=== PATIENT | male | born 1930 | race Caucasian/White ===

== ENCOUNTER 2018-06-03 11:37 | Inpatient (IN) | payer MEDICARE, OTHER ==
--- NOTE | 2018-06-03 12:23 | RAD ---
XR Chest 1 View Portable HISTORY:Syncope, weakness. COMPARISON: None. FINDINGS: Heart size appears slightly enlarged with atherosclerotic changes of aorta. The lungs are c lear of infiltrates. There are no signs of failure. IMPRESSION: Mild cardiomegaly.
--- NOTE | 2018-06-03 12:26 | RAD ---
XR Knee Lt 4 View STANDARD HISTORY:Left knee pain status post fall COMPARISON: None. FINDINGS: There are mild arthritic changes of the knee. There is no signs of fracture or joint effusi on. Vascular calcifications are present. IMPRESSION: No acute injury.
--- NOTE | 2018-06-03 12:32 | CT ---
CT head without contrast: Multiple axial tomograms obtained through the head without IV enhancement. INDICATIONS: Unwitnessed fall COMPARISON: CT head 06/15/2015 FINDINGS: Cortical volume loss and chronic ischemic white matter changes are noted. Encephalomalacia in the rig ht frontal lobe is again seen from old infarct. Encephalomalacia in the right occipital lobe is again seen consistent with old infarct. No evidence of acute infarct. No mass or hemorrhage. Visualized sinuses and mastoids appear clear. Bony calvarium appears unremarkable. IMPRESSION: No acute finding
[2018-06-03 12:53] LABS: #Monocytes 1.1 thou/uL (0.11-0.59); %Basophils 0.1 % (0.0-1.0); %Eosinophils 0.2 % (0.0-10.0); %Lymphocytes 10.8 % (21.0-51.0); %Monocytes 12.5 % (0.0-10.0); %Neutrophils 76.5 % (42.0-75.0); Hemoglobin 16.3 g/dL (14.0-18.0); Mean Corpuscular Hemoglobin 31.1 pg (27.0-31.0); Platelet Count 172 thou/uL (130-400); RBC Distribution Width 12.4 % (11.5-14.5); Red Blood Cell (RBC) Count 5.26 mill/uL (4.70-6.10); White Blood Cell (WBC) Count 9.1 thou/uL (4.8-10.8)
[2018-06-03 13:16] LABS: ALT (SGPT) 12 U/L (8-55); AST (SGOT) 26 U/L (5-34); Albumin 4.2 g/dL (3.4-4.8); Alkaline Phosphatase 81 U/L (40-150); Anion Gap 16 mmol/L (10-20); BUN (Urea Nitrogen) 27 mg/dL (8.4-25.7); Bilirubin, Total 1.9 mg/dL (0.2-1.2); CK (CPK) 291 U/L (30-200); Calc. Creatinine Clearance 0 mL/min (70-130); Calcium 9.8 mg/dL (7.8-10.44); Carbon Dioxide 25 mmol/L (23-31); Chloride 98 mmol/L (98-107); Estimated GFR-MDRD 23; Globulin 2.5 g/dL (2.4-3.5); Glucose 126 mg/dL (83-110); Potassium 3.6 mmol/L (3.5-5.1); Protein, Total 6.7 g/dL (5.8-8.1); Sodium 135 mmol/L (136-145)
[2018-06-03 13:22] LABS: CKMB 3.9 ng/mL (0-6.6)
[2018-06-03 13:27] LABS: Bilirubin Negative (Negative); Blood, Urine Negative (Negative); Clarity CLEAR (Clear); Glucose, Urine (Dipstick) Negative (Negative); Leukocyte Negative (Negative); Nitrite Negative (Negative); Protein, Urine (Dipstick) 30 mg/dL (Neg-Trace); Urobilinogen 0.2 mg/dL (0.2-1.0)
[2018-06-03] MEDS ORDERED: Aspirin 325 MG TAB ONE (13:28)
[2018-06-03 13:30] LABS: Bacteria/HPF None Seen HPF (None Seen); Hyaline Casts/LPF 4-6 HYALINE CAST LPF (0-3 Hyaline); RBC/HPF 0-3 HPF (0-3); Squamous Epithelial 0-3 HPF (0-3); WBC/HPF 0-3 HPF (0-3)
--- NOTE | 2018-06-03 14:16 | PDOC.FPRHP ---
- History of Present Illness Chief Complaint: Elevated troponin History of Present Illness: This is an 87 yo male with a pmh of HTN, HLD, atrial fibrillation, and a hx of CVA who presents to the ED with a cc of GLF. He reports yesterday he fell on level ground and was unable to get up until his neighbor came to help him. He was unable to quantify the time down. Today he was seen by his family when they found him on the toilet, unable to rise from a seated position due to weakness and pain. Pt reports left knee pain 2/2 fall. He denies chest pain, SOB, nausea , vomiting, or abdominal pain. ED Course: NS 500ml bolus - Allergies/Adverse Reactions Allergies Allergy/AdvReac Type Severity Reaction Status Date / Time No Known Allergies Allergy Verified 06/03/18 14:53 - Home Medications Medication Instructions Recorded Confirmed Type Lisinopril/Hydrochlorothiazide 1 tablet PO DAILY 06/16/15 06/03/18 History [Lisinopril-Hctz 20-25 mg Tab] Aspirin 325 mg PO DAILY #0 tab 06/17/15 06/03/18 Rx Atorvastatin Calcium 40 mg PO DAILY 06/03/18 06/03/18 History Montelukast Sodium [Singulair] 10 mg PO HS 06/03/18 06/03/18 History Multivitamin [One Daily 1 each PO DAILY 06/03/18 06/03/18 History Multivitamin] Solgohachia-3 Fatty Acids/Fish Oil [Fish 1,200 mg PO DAILY 06/03/18 06/03/18 History Oil 1,200 mg Softgel] - History PMHx: HTN, HLD, Atrial fibrillation, CVA PSHx: Appendectomy FHx:non-contributory Social: Denies smoking or drug use, history of daily drinking - Review of Systems General: denies: fever/chills, weight/appetite/sleep changes, night sweats, fatigue Eyes: denies: eye pain, vision changes ENT: reports: other (injury to lip from fall). denies: nasal congestion, rhinorrhea Respiratory: denies: cough, congestion, shortness of breath Cardiovascular: denies: chest pain, palpitation, edema, paroxysmal nocturnal dyspnea Gastrointestinal: denies: nausea, vomiting, diarrhea, constipation, abdominal pain Genitourinary: denies: incontinence, dysuria Skin: denies: rashes, lesions Musculoskeletal: reports: pain (left knee), swelling (left knee) Neurological: reports: weakness (generalized). denies: numbness, syncope Psychological: denies: anxiety, depression - Vital signs BP: 122/67 HR: 67 RR: 24 Tmax: 97.5 Pox: 95% on ra Wt: 78.9 kg - Physical Exam Constitutional: NAD, awake, alert and oriented, well developed HEENT: normocephalic and atraumatic, PERRLA, EOMI, conjunctiva clear, grossly normal hearing, MMM, other (bruising over superior lip) Neck: FROM, trachea midline, no bruits Chest: no-tender to palpation, no lesions Heart: normal S1/S2, no murmurs/rubs/gallops, other (regular rate, irregular rhythm) Lungs: CTAB, no respiratory distress, good air movement, no wheezing, no retractions Abdomen: soft, non-tender, bowel sounds present, no masses/distention Musculoskeletal: normal structure, ROM grossly normal, other (left knee effusion and bruising) Neurological: no focal deficit, CN II-XII intact Skin: no rash/lesions, capillary refill <2 seconds Heme/Lymphatic: no unusual bruising or bleeding Psychiatric: normal mood and affect, good judgment and insight, intact recent and remote memory FMR H&P: Results - Labs Result Diagrams: 06/03/18 12:40 06/03/18 12:40 Lab results: WBC 9.1 thou/uL (4.8-10.8) 06/03/18 12:40 Hgb 16.3 g/dL (14.0-18.0) 06/03/18 12:40 Hct 49.4 % (42.0-52.0) 06/03/18 12:40 MCV 94.0 fL (78.0-98.0) 06/03/18 12:40 Plt Count 172 thou/uL (130-400) 06/03/18 12:40 Neutrophils % 76.5 % (42.0-75.0) H 06/03/18 12:40 Sodium 135 mmol/L (136-145) L 06/03/18 12:40 Potassium 3.6 mmol/L (3.5-5.1) 06/03/18 12:40 Chloride 98 mmol/L (98-107) 06/03/18 12:40 Carbon Dioxide 25 mmol/L (23-31) 06/03/18 12:40 BUN 27 mg/dL (8.4-25.7) H 06/03/18 12:40 Creatinine 2.62 mg/dL (0.7-1.3) H 06/03/18 12:40 Glucose 126 mg/dL (83-110) H 06/03/18 12:40 Calcium 9.8 mg/dL (7.8-10.44) 06/03/18 12:40 Total Bilirubin 1.9 mg/dL (0.2-1.2) H 06/03/18 12:40 AST 26 U/L (5-34) 06/03/18 12:40 ALT 12 U/L (8-55) 06/03/18 12:40 Alkaline Phosphatase 81 U/L (40-150) 06/03/18 12:40 Creatine Kinase 291 U/L (30-200) H 06/03/18 12:40 CK-MB (CK-2) 3.9 ng/mL (0-6.6) 06/03/18 12:19 B-Natriuretic Peptide 437.0 pg/mL (0-100) H 06/03/18 12:40 Serum Total Protein 6.7 g/dL (5.8-8.1) 06/03/18 12:40 Albumin 4.2 g/dL (3.4-4.8) 06/03/18 12:40 Urine Ketones Negative mg/dL (Negative) 06/03/18 13:15 Urine Blood Negative (Negative) 06/03/18 13:15 Urine Nitrite Negative (Negative) 06/03/18 13:15 Ur Leukocyte Esterase Negative (Negative) 06/03/18 13:15 Urine RBC 0-3 HPF (0-3) 06/03/18 13:15 Urine WBC 0-3 HPF (0-3) 06/03/18 13:15 Ur Squamous Epith Cells 0-3 HPF (0-3) 06/03/18 13:15 Urine Bacteria None Seen HPF (None Seen) 06/03/18 13:15 - EKG Interpretation EKG: Atrial fibrillation, no ST changes consistent with ischemia - Radiology Interpretation CT scan - head Status: report reviewed by me (No acute infarct, mass, or hemorrhage) Other Status: report reviewed by me (Left knee xray 4 view, no acute injury) Chest x-ray Status: report reviewed by me (Mild cardiomegaly) FMR H&P: A/P - Problem List (1) Acute kidney injury superimposed on CKD Current Visit: Yes Status: Acute Code(s): N17.9 - ACUTE KIDNEY FAILURE, UNSPECIFIED; N18.9 - CHRONIC KIDNEY DISEASE, UNSPECIFIED (2) Elevated troponin Current Visit: Yes Status: Acute Code(s): R74.8 - ABNORMAL LEVELS OF OTHER SERUM ENZYMES (3) Atrial fibrillation with normal ventricular rate Current Visit: No Status: Acute Code(s): I48.91 - UNSPECIFIED ATRIAL FIBRILLATION (4) Hyperbilirubinemia Current Visit: No Status: Acute Code(s): E80.6 - OTHER DISORDERS OF BILIRUBIN METABOLISM (5) HTN (hypertension) Current Visit: No Status: Chronic Code(s): I10 - ESSENTIAL (PRIMARY) HYPERTENSION Qualifiers: Hypertension type: essential hypertension Qualified Code(s): I10 - Essential (primary) hypertension - Plan This is an 87 yo male with a pmh of HTN, HLD, atrial fibrillation, and a hx of CVA Elevated troponins, asymptomatic -Admit to tele -Initial troponin .48, second to .56 -Heart score of 7 -S/P aspirin, therapeutic lovenox -Pending stress test in the AM -Consider cardiology consult if pt develops chest pain or EKG changes CAN on CKD 3 -IVF hydration, hold lisinopril -Repeat BMP in AM Ground level fall with knee contusion -Negative xrays for knee fracture -CT of head negative for intracranial findings -Tylenol and tramadol for pain management Atrial fibrilation -Rate controlled, continue home aspirin HLD -Continue home meds HTN -Hold lisinopril, continue HCTZ FMR H&P: Upper Level - Pertinent history 87 yo M w/hx of CVA and afib/flutter here following an unwitnessed fall at home yesterday. He was walking outside and tripped while walking on flat ground. He denies hitting his head or LOC. He denies chest pain, SOB, dizziness or palpitations associated with the fall. While at home today he has worsening knee pain which prompted him going to the ER for further evaluation. Imaging found no acute fracture and a normal CT brain. However, labs were significant for NSTEMI level trop and an CAN. ROS General - Denies fever or chills HEENT - denies head or facial pain or changes in vision Neuro - denies weakness, numbness, slurred speech, or changes in vision CV - denies chest pain or palpitation Rest - denies SOB MSK - complains of L knee pain - Pertinent findings PE General - A&O x4, no acute distress HEENT - NCAT CV - irregularly irregular Resp - CTA Neuro - CN II-XII intact, normal sensation and strength in extremities Laboratory Tests 06/03/18 06/03/18 06/03/18 12:19 12:40 12:40 WBC Hgb Plt Count Sodium 135 L Potassium 3.6 Chloride 98 Carbon Dioxide 25 BUN 27 H Creatinine 2.62 H Estimated GFR (MDRD) 23 Glucose 126 H Total Bilirubin 1.9 H AST 26 ALT 12 Creatine Kinase 291 H CK-MB (CK-2) 3.9 Troponin I 0.486 H* B-Natriuretic Peptide 437.0 H 06/03/18 12:40 WBC 9.1 Hgb 16.3 Plt Count 172 Sodium Potassium Chloride Carbon Dioxide BUN Creatinine Estimated GFR (MDRD) Glucose Total Bilirubin AST ALT Creatine Kinase CK-MB (CK-2) Troponin I B-Natriuretic Peptide - Plan Date/Time: 06/03/18 1416 IChris DO, have evaluated this patient and agree with findings/plan as outlined by manager international resident. Pertinent changes/additions are listed here. 1. NSTEMI - trend trop w/EKG q3H - Therapeutic lovenox dosed qday due to CrCl <30 - Admit to tele and consult cardiology 2. CAN on CKD - IVF, recheck BMP in am - likely related to poor PO intake 3. Hx of CVA - continue home statin 4. Knee contusion - prn tylenol 5. HTN - home PAULA-I PPx lovenox Diet heart healthy, NPO at midnight Addendum - Attending - Attending Attestation Date/Time: 06/03/18 1607 I personally evaluated the patient and discussed the management with Dr. Strong I agree with the History, Examination, Assessment and Plan documented above with any addition or exceptions noted below. 87 yo right handed male living independently fell yesterday on street near home suffering left knee superficial abrasion, right elbow and facial contusions. Patient denies tripping patient helped back to his feet by passing neighbors and he walked back home unassisted. Patient this AM found stuck in his bathroom by grandson unable to get off commode due to pain from left knee. Patient to ER for evaluation with positive troponin 0.5 and admitted with concern NSTEMI. PMHX: 35 lbs weight loss in over last tear patient edentulous and family states eats poorly. 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
[2018-06-03] MEDS ORDERED: Acetaminophen 325 MG TAB PO PRN (14:32)
[2018-06-03] MEDS ORDERED: Nitroglycerin 0.4 MG TAB (25 Tab Bottle) PO PRN (14:32)
[2018-06-03] MEDS ORDERED: Ondansetron ODT 4 MG TAB PO PRN (14:32)
[2018-06-03 16:06] LABS: Troponin I 0.567 ng/mL (< 0.028)
[2018-06-03] MEDS: traMADol HCl 50 MG TAB PO PRN (17:36)
[2018-06-03] MEDS: Sodium Chloride 0.9% 1,000 ML IV SCH (17:37)
[2018-06-03 18:32] LABS: Platelet Count 171 thou/uL (130-400)
[2018-06-03 18:39] LABS: Hemoglobin 15.3 g/dL (14.0-18.0)
[2018-06-03 19:01] LABS: Critical Call Chem Troponin I RESULT DECREASING; Troponin I 0.565 ng/mL (< 0.028)
[2018-06-03] MEDS ORDERED: Enoxaparin Sodium 80 MG/0.8 ML SYRINGE SC SCH ×2 (21:00)
[2018-06-03] MEDS ORDERED: traMADol HCl 50 MG TAB PO SCH (21:15)
[2018-06-03] MEDS: Montelukast Sodium 10 mg Tablet PO SCH (21:29)
[2018-06-03] MEDS: Hydrochlorothiazide 25 MG TAB PO SCH (21:29)
[2018-06-04] MEDS: Sodium Chloride 0.9% 1,000 ML IV SCH ×4 (00:21→15:51)
[2018-06-04] MEDS: traMADol HCl 50 MG TAB PO PRN (04:22)
[2018-06-04 05:40] LABS: #Eosinphils 0.1 thou/uL (0.0-0.7); #Lymphocytes 1.4 thou/uL (1.20-3.40); #Monocytes 1.2 thou/uL (0.11-0.59); #Neutrophils 5.7 thou/uL (1.40-6.50); %Basophils 0.3 % (0.0-1.0); %Eosinophils 0.8 % (0.0-10.0); %Lymphocytes 16.9 % (21.0-51.0); %Monocytes 13.6 % (0.0-10.0); %Neutrophils 68.4 % (42.0-75.0); Hemoglobin 15.4 g/dL (14.0-18.0); Mean Corpuscular HGB CONC 33.1 g/dL (32.0-36.0); Mean Corpuscular Hemoglobin 31.4 pg (27.0-31.0); Mean Corpuscular Volume 94.9 fL (78.0-98.0); Mean Platelet Volume 7.2 fL (7.4-10.4); Platelet Count 161 thou/uL (130-400); RBC Distribution Width 12.4 % (11.5-14.5); White Blood Cell (WBC) Count 8.4 thou/uL (4.8-10.8)
[2018-06-04 05:57] LABS: Anion Gap 15 mmol/L (10-20); BUN (Urea Nitrogen) 26 mg/dL (8.4-25.7); Calc. Creatinine Clearance 23 mL/min (70-130); Carbon Dioxide 22 mmol/L (23-31); Cardiac Risk 1.6 (Less than 4.5); Chloride 100 mmol/L (98-107); Cholesterol 116 mg/dl (< 200 Desired); Estimated GFR-MDRD 29; Glucose 100 mg/dL (83-110); HDL Cholesterol 74 mg/dL (>60 Neg Risk); LDL Cholesterol, Calculated 31 mg/dL; Potassium 3.5 mmol/L (3.5-5.1); Sodium 133 mmol/L (136-145); Triglycerides 53 mg/dL (Less than 150)
[2018-06-04] MEDS: Hydrochlorothiazide 25 MG TAB PO SCH ×2 (08:52→20:57)
[2018-06-04] MEDS: Atorvastatin Calcium 40 MG TAB PO SCH (08:52)
[2018-06-04] MEDS: Multivit, Therapeutic 1 TAB PO SCH (08:52)
[2018-06-04] MEDS: Fish Oil 1,000 MG CAP PO SCH (08:52)
[2018-06-04] MEDS ORDERED: Aspirin 325 MG TAB PO SCH (09:00)
--- NOTE | 2018-06-04 10:20 | PDOC.FM ---
- Subjective Subjective: NAEO. No chest pain. Having left knee pain with swelling. - Objective MAR Reviewed: Yes Vital Signs & Weight: Vital Signs (12 hours) Temp Pulse Resp BP Pulse Ox 06/04/18 08:00 97.6 F 63 17 151/85 H 98 06/04/18 03:55 97.1 F L 58 L 17 146/82 H 99 Weight Weight 68.765 kg I&O: 06/03/18 06/04/18 06/05/18 06:59 06:59 06:59 Intake Total 1500 Output Total 788 Balance 712 Result Diagrams: 06/04/18 04:43 06/04/18 04:43 Phys Exam - Physical Examination Constitutional: NAD HEENT: PERRLA, moist MMs, sclera anicteric Neck: full ROM Respiratory: no wheezing, clear to auscultation bilateral Cardiovascular: RRR, no significant murmur Gastrointestinal: soft L knee ertyhema, effusion, pain with touch Neurological: non-focal Psychiatric: normal affect Dx/Plan (1) Painful knee Code(s): M25.569 - PAIN IN UNSPECIFIED KNEE Status: Acute (2) CKD (chronic kidney disease) Code(s): N18.9 - CHRONIC KIDNEY DISEASE, UNSPECIFIED Status: Acute (3) Elevated troponin Code(s): R74.8 - ABNORMAL LEVELS OF OTHER SERUM ENZYMES Status: Acute (4) Atrial fibrillation with normal ventricular rate Code(s): I48.91 - UNSPECIFIED ATRIAL FIBRILLATION Status: Acute (5) HTN (hypertension) Code(s): I10 - ESSENTIAL (PRIMARY) HYPERTENSION Status: Chronic Qualifiers: Hypertension type: essential hypertension Qualified Code(s): I10 - Essential (primary) hypertension - Plan Plan: This is an 87 yo male with a pmh of HTN, HLD, atrial fibrillation, and a hx of CVA #Elevated troponins, asymptomatic -Admit to tele -Initial troponin .48, second to .56, stable -Heart score of 7 -Continue ASA, th lovenox -Pending echo -No chest pain nor tele/EKG changes but will consult cards -NPO for now #CAN on CKD3 -Improved creatinine -No recent labs, CAN vs CKD3, will continue IVF with AM BMP -Hold lisinopril; low gfr #ground level fall with knee contusion -Negative xrays for knee fracture -CT of head negative for intracranial findings -Tylenol and tramadol for pain management -erythematous today, gout vs. septic arthritis -no WBC or fever, will do joint aspiration, mgmt pending fluid analysi #Atrial fibrilation -Rate controlled, continue home aspirin #HLD -Continue home meds #HTN -Hold lisinopril, continue HCTZ Will discuss w/ Dr. Jones Addendum - Attending - Attending Attestation Date/Time: 06/04/18 1825 I personally evaluated the patient and discussed the management with Dr. Tejeda. I agree with the History, Examination, Assessment and Plan documented above with any addition or exceptions noted below. consulting cards for elevated troponins. Pt with erythematous mildly warm left knee with minimal effusion. Pt has difficulty bending the knee 2/2 pain. Will set up for knee aspiration as pt has a history of gout.
[2018-06-04] MEDS ORDERED: Lidocaine 1% (PF) 30 ML VIAL FS SCH (12:45)
[2018-06-04] MEDS: Acetaminophen 500 MG TAB PO PRN ×2 (13:57→20:58)
--- NOTE | 2018-06-04 15:33 | PDOC.EVN ---
Event Note - Event Note Event Note: PRE-OP DIAGNOSIS: L knee pain with effusion POST-OP DIAGNOSIS: Same PROCEDURE: Arthrocentesis/Joint aspiration of left knee Performing Physician: Nikhil Supervising Physician (if applicable): Anselmo Dose: 2% Lidocaine 3 mL Procedure: The patient was consented explaining risks of pain, bleeding, and infection. The area was prepped in the usual sterile manner with sterile glove use. The needle was inserted and 3mL of lidocaine injected to achieve local anesthetic along superior lateral approach. 18g needle was then inserted via superior lateral approach and 10cc of synovial fluid aspirated. There were no complications during this procedure. EBL: scant The patient tolerated the procedure well without complications. Fluid sent for cell count, gram stain, culture, crystal analysis.
[2018-06-04 16:33] LABS: Synovial Fluid, Protein 1.9 g/dL (Not Available); Synovial Fluid, Uric Acid 6.7 mg/dL (Not Available)
[2018-06-04 16:35] LABS: BF Color Yellow; Body Fluid Source Synovial Fluid; Clarity Hazy (Clear); RBC Background Count 0.002; RBC Count-Automated 12000 /cumm; Tube # EDTA; WBC/NonHematic-Auto 5640 /cumm
[2018-06-04 17:07] LABS: BF Segmented Neutrophils 64 %; Cell Count Non Hematic 36 %
--- NOTE | 2018-06-04 17:37 | CON ---
DATE OF CONSULTATION: REASON FOR CONSULTATION: Syncope and elevated troponin. HISTORY OF PRESENT ILLNESS: Mr. Costa is a pleasant 87-year-old gentleman, who recently had a fall. The details around the episode are unknown. He states he has no recollection. His family is currently available. They state he has lost 30 pounds in the last several months. They feel depression is the main factor. He lives by himself and has lost his several years ago. He denies chest pain, pressure, or associated symptoms. He has no previous history of underlying coronary artery disease. PAST MEDICAL HISTORY: Hypertension; seasonal allergies; hyperlipidemia; ? Atrial fibrillation, not on anticoagulation therapy; appendectomy. SOCIAL HISTORY: No current tobacco or alcohol use. Please see above. HOME MEDICATIONS: 1. Singulair. 2. Lisinopril/hydrochlorothiazide. 3. Atorvastatin. 4. Fish oil. 5. Multivitamin. 6. Aspirin. REVIEW OF SYSTEMS: A 10-point review of systems is reviewed and as above, otherwise negative. PHYSICAL EXAMINATION: GENERAL: Patient is a pleasant male, who is in no acute distress. The patient appears their stated age. VITAL SIGNS: Blood pressure 150/87, pulse 75, temperature 97.2. NEUROLOGIC: The patient is alert and oriented x3 with no focal neurologic deficits. HEENT: Sclerae without icterus. Mouth has moist mucous membranes with normal pallor. NECK: No JVD. Carotid upstroke brisk. No bruits bilaterally. LUNGS: Clear to auscultation with unlabored respirations. BACK: No scoliosis or kyphosis. CARDIAC: Regular rate and rhythm with normal S1 and S2. No S3 or S4 noted. No significant rubs, murmurs, thrills, or gallops noted throughout the precordium. PMI is not displaced. There is no parasternal heave. ABDOMEN: Soft, nontender, nondistended. No peritoneal signs present. No hepatosplenomegaly. No abnormal striae. EXTREMITIES: 2+ femoral and 2+ dorsalis pedis pulses. No cyanosis, clubbing, or edema. SKIN: No gross abnormalities. PERTINENT LABORATORY DATA: Hemoglobin 15.4. Creatinine 2.14, peak troponin 0.5. IMPRESSION: 1. Syncope. 2. Atrial fibrillation. 3. Advanced age. RECOMMENDATION: I had a long discussion with Mr. Costa and his family. He has no symptoms consistent with angina. He has had two falls in the last month and a half, although the first while, per family, he tripped and fell. Symptoms with elevated creatinine may be due to dehydration and poor p.o. intake. The family confirms that he has had both. He has also had significant weight loss. This may also be from a dysrhythmia. We will review his echo. We would also recommend a 3-week event recorder. Given no symptoms of angina, we will defer stress study at this time. If his LVEF is normal, we will then recommend aggressive medical therapy, avoiding PAULA inhibitor therapy and ARB. Job ID: [id number]
[2018-06-04] MEDS: Enoxaparin Sodium 80 MG/0.8 ML SYRINGE SC SCH (20:57)
[2018-06-04] MEDS: Montelukast Sodium 10 mg Tablet PO SCH (20:58)
[2018-06-05] MEDS ORDERED: diphenhydrAMINE 50 MG/ML VIAL IVP PRN (00:15)
[2018-06-05] MEDS ORDERED: Lorazepam 2 MG/ML VIAL SLOW IVP SCH ×2 (00:15→22:45)
--- NOTE | 2018-06-05 00:26 | PDOC.CTH ---
Cardiology Progress Note - Subjective Confused overnight. Required restraints. - Objective Vital Signs Temp Pulse Pulse Resp BP BP BP 06/04/18 18:45 97.4 F L 79 18 113/72 06/04/18 16:00 97.2 F L 75 18 150/87 H 06/04/18 15:10 83 150/87 H Pulse Ox 06/04/18 18:45 97 06/04/18 16:00 98 06/04/18 15:10 Admit Weight 147 lb Weight 151 lb 9.6 oz 06/03/18 06/04/18 06/05/18 06:59 06:59 06:59 Intake Total 1500 1480 Output Total 788 1200 Balance 712 280 - Physical Examination General/Neuro: alert & oriented x3, NAD Neck: no JVD present Lungs: unlabored respirations Heart: other: (irr) Abdomen: NT/ND, soft Extremities: + femoral B - Telemetry Telemetry Rhythm: irr - Labs Result Diagrams: 06/05/18 06:52 06/05/18 08:20 Troponin/CKMB CK-MB (CK-2) 3.9 ng/mL (0-6.6) 06/03/18 12:19 Troponin I 0.565 ng/mL (< 0.028) H* 06/03/18 18:25 - Assessment/Plan Syncope? Afib Weight loss Given comorbidities, recommend conservative treatment Will order 3 week event EF normal on recent echo Discuss ACT; concern over falls times two in last two months but will be with family and not living at home alone. Add jerica JJ in office. Pt with chronic afib in the past. Given that he is rate cotrlled, of to medical
[2018-06-05] MEDS: Sodium Chloride 0.9% 1,000 ML IV SCH ×3 (01:51→18:37)
[2018-06-05 07:42] LABS: #Basophils 0.1 thou/uL (0.0-0.2); #Eosinphils 0.1 thou/uL (0.0-0.7); #Lymphocytes 1.1 thou/uL (1.20-3.40); #Monocytes 1.1 thou/uL (0.11-0.59); %Basophils 0.5 % (0.0-1.0); %Eosinophils 0.5 % (0.0-10.0); %Lymphocytes 10.5 % (21.0-51.0); %Monocytes 10.7 % (0.0-10.0); %Neutrophils 77.8 % (42.0-75.0); Hemoglobin 14.7 g/dL (14.0-18.0); Mean Corpuscular HGB CONC 32.6 g/dL (32.0-36.0); Mean Corpuscular Hemoglobin 30.9 pg (27.0-31.0); Mean Corpuscular Volume 94.7 fL (78.0-98.0); Mean Platelet Volume 7.2 fL (7.4-10.4); Platelet Count 176 thou/uL (130-400); RBC Distribution Width 12.4 % (11.5-14.5); Red Blood Cell (RBC) Count 4.78 mill/uL (4.70-6.10); White Blood Cell (WBC) Count 10.3 thou/uL (4.8-10.8)
[2018-06-05 08:37] LABS: Chloride 101 mmol/L (98-107); Potassium 3.5 mmol/L (3.5-5.1); Sodium 131 mmol/L (136-145)
[2018-06-05 08:38] LABS: Calcium 8.9 mg/dL (7.8-10.44); Glucose 104 mg/dL (83-110)
[2018-06-05 08:40] LABS: Anion Gap 16 mmol/L (10-20); Carbon Dioxide 18 mmol/L (23-31)
[2018-06-05 08:41] LABS: Calc. Creatinine Clearance 24 mL/min (70-130); Estimated GFR-MDRD 30
[2018-06-05 08:42] LABS: BUN (Urea Nitrogen) 26 mg/dL (8.4-25.7)
[2018-06-05] MEDS ORDERED: predniSONE 20 MG TAB PO SCH ×2 (11:00→23:00)
--- NOTE | 2018-06-05 12:02 | PDOC.FM ---
- Subjective Subjective: Became agitated last night requiring ativan and 4 point restraint. Still sleepy this morning, likely from medication. A&O x0, not forming coherent sentences. - Objective MAR Reviewed: Yes Vital Signs & Weight: Vital Signs (12 hours) Temp Pulse Resp BP BP Pulse Ox 06/05/18 08:00 96.9 F L 82 18 153/100 H 98 06/05/18 04:00 97.9 F 98 18 168/92 H 96 Weight Admit Weight 66.678 kg Weight 68.765 kg I&O: 06/04/18 06/05/18 06/06/18 06:59 06:59 06:59 Intake Total 1500 1480 Output Total 788 1200 Balance 712 280 Result Diagrams: 06/05/18 06:52 06/05/18 08:20 Phys Exam - Physical Examination Constitutional: NAD HEENT: PERRLA, moist MMs Respiratory: no wheezing, clear to auscultation bilateral Cardiovascular: irregular Gastrointestinal: soft, non-tender left knee erythema, swelling, improved Neurological: non-focal, moves all 4 limbs Skin: cap refill <2 seconds Dx/Plan (1) Acute gout Code(s): M10.9 - GOUT, UNSPECIFIED Status: Acute (2) CKD (chronic kidney disease) Code(s): N18.9 - CHRONIC KIDNEY DISEASE, UNSPECIFIED Status: Acute (3) Elevated troponin Code(s): R74.8 - ABNORMAL LEVELS OF OTHER SERUM ENZYMES Status: Acute (4) Atrial fibrillation with normal ventricular rate Code(s): I48.91 - UNSPECIFIED ATRIAL FIBRILLATION Status: Acute (5) HTN (hypertension) Code(s): I10 - ESSENTIAL (PRIMARY) HYPERTENSION Status: Chronic Qualifiers: Hypertension type: essential hypertension Qualified Code(s): I10 - Essential (primary) hypertension (6) NSTEMI (non-ST elevated myocardial infarction) Code(s): I21.4 - NON-ST ELEVATION (NSTEMI) MYOCARDIAL INFARCTION Status: Acute - Plan Plan: This is an 87 yo male with a pmh of HTN, HLD, atrial fibrillation, and a hx of CVA #Acute gout -synovial fluid analysis shows inflammatory pattern with + monosodium urate crystals -patient with hx of gout, not on ppx medications -will treat with prednisone x7days, no NSAIDs due to CAN -consider allopurinol outpt -gram stain neg for organisms, culture pending-pt w/o fever or WBC, less likely septic arthritis -however, will continue to monitor #NSTEMI -troponins trended down -Cardiology on board, no invasive intervention due to comorbidities -Continue medical mgmt with th. lovenox, ASA, statin, BB #CAN on CKD3 -Improved creatinine 2.14-> 2.07 -Continue mIVF -Hold lisinopril; low gfr -Consider establishing with outpt solution advisor #ground level fall with knee contusion -Negative xrays for knee fracture -CT of head negative for intracranial findings -Tylenol and tramadol for pain management #Atrial fibrilation -Rate controlled, continue home aspirin -no anticoagulation at this time, patient is high fall risk #HLD -Continue home meds #HTN -Hold lisinopril, continue HCTZ -BP normal-high, stable -IV antihypertensives PRN Will discuss w/ Dr. Jones dvt ppx: th lovenox Dispo: 1.) AMS-Pt. with AMS this morning, likely from ativan received overnight. Continue re-orienting. NPO until safe to swallow. 2.) Acute gout- prednisone for 7 days, improving.Consider re-starting allopurinol for ppx. Pending fluid culture but gram stain neg for organisms. 3.) NSTEMI-medical mgmt 4.) Work with PT and CM for placement Addendum - Attending - Attending Attestation Date/Time: 06/05/18 7033 I personally evaluated the patient and discussed the management with Dr. Tejeda. I agree with the History, Examination, Assessment and Plan documented above with any addition or exceptions noted below. The patient became agitated overnight requiring 4 point restraint and ativan. He is still very sleepy this morning and opens eyes to his name but doesn't answer questions. Pt may need placement and case mgmt has been consulted. Knee aspirate yesterday shows gout crystals. Starting prednisone.
[2018-06-05] MEDS ORDERED: Labetalol HCl 100 MG/20 ML VIAL SLOW IVP PRN (12:09)
[2018-06-05] MEDS: Aspirin 81 mg Enteric Coated Tablet PO SCH (14:28)
[2018-06-05] MEDS: Enoxaparin Sodium 80 MG/0.8 ML SYRINGE SC SCH (14:28)
[2018-06-05] MEDS: Atorvastatin Calcium 40 MG TAB PO SCH (14:28)
[2018-06-05] MEDS: Fish Oil 1,000 MG CAP PO SCH (14:29)
[2018-06-05] MEDS: Hydrochlorothiazide 25 MG TAB PO SCH ×2 (14:38→20:16)
[2018-06-05] MEDS: Multivit, Therapeutic 1 TAB PO SCH (14:38)
[2018-06-05] MEDS: Montelukast Sodium 10 mg Tablet PO SCH (20:16)
[2018-06-05] MEDS: Apixaban 2.5 MG TAB PO SCH (20:16)
[2018-06-05] MEDS ORDERED: Carvedilol 3.125 MG TAB PO SCH (22:15)
[2018-06-05] MEDS: traMADol HCl 50 MG TAB PO PRN (22:29)
[2018-06-05] MEDS: Docusate 100 MG CAP PO PRN (22:51)
--- NOTE | 2018-06-05 22:55 | PDOC.EVN ---
Event Note - Event Note Event Note: Residents called to bedside for concern of return of patient's agitation. Per family he was sleepy on and off today and was not given tx for acute gout flare. They believe he is in pain 2/2 that as well as agitated and confused. On exam, patient is sitting up in the bed, pulling at IV and touching L knee. Family reports they have been yelling at him and they are hiding in the bathroom. Discussed plan to give small dose of ativan as well as melatonin to try and assist with sleep-wake cycle. Discussed importance of awake during the day, curtains open, frequent orientation. Will also give now dose of prednisone for acute gout flare as it appears it was held today due to his sleepiness. Not a great candidate for NSAIDs or colchicine with current renal function. Family reassured and had not questions at this time.
[2018-06-06] MEDS: Sodium Chloride 0.9% 1,000 ML IV SCH ×3 (02:33→17:54)
--- NOTE | 2018-06-06 07:49 | PDOC.FM ---
Addendum entered and electronically signed by Staci Tejeda MD 06/06/18 11:58 : Plan: -K 3.4, likely from HCTZ -will start on maintenane KCl and replace x1 now Original Note: - Subjective Subjective: Agitate last night, not as severe as yesterdya. Able to tlak this AM, A&O x3. No compalints. - Objective MAR Reviewed: Yes Vital Signs & Weight: Vital Signs (12 hours) Temp Pulse Resp BP BP Pulse Ox 06/06/18 07:37 97.8 F 70 18 129/74 91 L 06/06/18 04:09 97.5 F L 74 20 151/82 H 96 06/06/18 00:15 89 20 153/86 H 06/05/18 19:50 98.2 F 77 18 150/95 H 96 Weight Admit Weight 66.678 kg Weight 68.765 kg I&O: 06/05/18 06/06/18 06/07/18 06:59 06:59 06:59 Intake Total 1480 3135 Output Total 1200 1775 Balance 280 1360 Result Diagrams: 06/06/18 09:07 06/06/18 09:07 Phys Exam - Physical Examination Constitutional: NAD sleepy HEENT: PERRLA Neck: no nodes, full ROM Respiratory: no wheezing, clear to auscultation bilateral irregular rhythm Gastrointestinal: soft, non-tender left Neurological: moves all 4 limbs left knee erythematous, red, able to move Psychiatric: A&O x 3 Dx/Plan (1) Acute gout Code(s): M10.9 - GOUT, UNSPECIFIED Status: Acute (2) CKD (chronic kidney disease) Code(s): N18.9 - CHRONIC KIDNEY DISEASE, UNSPECIFIED Status: Acute (3) Elevated troponin Code(s): R74.8 - ABNORMAL LEVELS OF OTHER SERUM ENZYMES Status: Acute (4) Atrial fibrillation with normal ventricular rate Code(s): I48.91 - UNSPECIFIED ATRIAL FIBRILLATION Status: Acute (5) HTN (hypertension) Code(s): I10 - ESSENTIAL (PRIMARY) HYPERTENSION Status: Chronic Qualifiers: Hypertension type: essential hypertension Qualified Code(s): I10 - Essential (primary) hypertension (6) NSTEMI (non-ST elevated myocardial infarction) Code(s): I21.4 - NON-ST ELEVATION (NSTEMI) MYOCARDIAL INFARCTION Status: Acute - Plan Plan: This is an 87 yo male with a pmh of HTN, HLD, atrial fibrillation, and a hx of CVA #Acute gout -synovial fluid analysis shows inflammatory pattern with + monosodium urate crystals. Cx NGTD@24hrs -prednisone x7days, no NSAIDs or colchicine due to CAN -consider allopurinol outpt for ppx #NSTEMI -troponins trended down, asx -Cardiology on board, no invasive intervention due to comorbidities -Continue medical mgmt with ASA, statin, BB #CAN on CKD3 -Improved creatinine 2.14-> 2.07, AM labs pending -Continue mIVF since pt minimal eating due to mental status -Hold lisinopril; low gfr -Consider establishing with outpt senior electrical designer #ground level fall with knee contusion -Negative xrays for knee fracture -CT of head negative for intracranial findings -Tylenol and tramadol for pain management #Atrial fibrilation -Rate controlled, continue home aspirin -started on eliquis #HLD -Continue home meds #HTN -Hold lisinopril, continue HCTZ -BP normal-high, stable -IV antihypertensives PRN Will discuss w/ Dr. Jones dvt ppx: eliquis Dispo: 1.) AMS-Pt. with AMS this morning, garrett . Continue re- orienting. Melatonin qhs to help with readjusting sleep wake cycle. 2.) Acute gout-prednisone for 7 days, improving. Consider re-starting allopurinol for ppx. Fluid cx NGTD @ 24hrs 3.) NSTEMI-medical mgmt w/ statin, ASA, BB. 4.) Work with PT and CM for placement Addendum - Attending - Attending Attestation Date/Time: 06/06/18 5958 I personally evaluated the patient and discussed the management with Dr. Tejeda. I agree with the History, Examination, Assessment and Plan documented above with any addition or exceptions noted below. Replacing potassium for hypokalemia. CAN is improving. Will coordinate with family on discharge planning.
[2018-06-06] MEDS: Hydrochlorothiazide 25 MG TAB PO SCH ×2 (08:12→20:10)
[2018-06-06] MEDS: Atorvastatin Calcium 40 MG TAB PO SCH (08:12)
[2018-06-06] MEDS: Apixaban 2.5 MG TAB PO SCH ×2 (08:13→20:10)
[2018-06-06] MEDS: Multivit, Therapeutic 1 TAB PO SCH (08:13)
[2018-06-06] MEDS: predniSONE 20 MG TAB PO SCH (08:13)
[2018-06-06] MEDS: Carvedilol 3.125 MG TAB PO SCH ×2 (08:13→17:49)
[2018-06-06] MEDS: Fish Oil 1,000 MG CAP PO SCH (08:13)
[2018-06-06] MEDS: Aspirin 81 mg Enteric Coated Tablet PO SCH (08:13)
[2018-06-06 09:37] LABS: #Eosinphils 0.1 thou/uL (0.0-0.7); #Monocytes 1.4 thou/uL (0.11-0.59); #Neutrophils 7.4 thou/uL (1.40-6.50); %Basophils 0.1 % (0.0-1.0); %Eosinophils 0.6 % (0.0-10.0); %Lymphocytes 10.3 % (21.0-51.0); Hemoglobin 14.2 g/dL (14.0-18.0); Mean Corpuscular HGB CONC 33.5 g/dL (32.0-36.0); Mean Corpuscular Hemoglobin 31.1 pg (27.0-31.0); Mean Platelet Volume 7.1 fL (7.4-10.4); Platelet Count 173 thou/uL (130-400); RBC Distribution Width 12.3 % (11.5-14.5); Red Blood Cell (RBC) Count 4.56 mill/uL (4.70-6.10); White Blood Cell (WBC) Count 9.9 thou/uL (4.8-10.8)
[2018-06-06 09:57] LABS: Anion Gap 13 mmol/L (10-20); BUN (Urea Nitrogen) 23 mg/dL (8.4-25.7); Calc. Creatinine Clearance 26 mL/min (70-130); Calcium 8.6 mg/dL (7.8-10.44); Carbon Dioxide 20 mmol/L (23-31); Chloride 100 mmol/L (98-107); Estimated GFR-MDRD 34; Glucose 98 mg/dL (83-110); Potassium 3.4 mmol/L (3.5-5.1); Sodium 130 mmol/L (136-145)
[2018-06-06] MEDS ORDERED: Potassium Chloride 20 MEQ TAB PO SCH (12:15)
[2018-06-06] MEDS: Potassium Chloride 20 MEQ TAB PO SCH (17:48)
[2018-06-06] MEDS: Montelukast Sodium 10 mg Tablet PO SCH (20:10)
[2018-06-06] MEDS: Docusate 100 MG CAP PO PRN (20:11)
[2018-06-06] MEDS: Melatonin 3 MG TAB PO PRN (20:11)
[2018-06-07] MEDS: Sodium Chloride 0.9% 1,000 ML IV SCH ×3 (03:09→20:25)
[2018-06-07] MEDS ORDERED: Lorazepam 2 MG/ML VIAL SLOW IVP SCH (03:15)
[2018-06-07] MEDS: traMADol HCl 50 MG TAB PO PRN (03:29)
--- NOTE | 2018-06-07 05:44 | PDOC.FM ---
Addendum entered and electronically signed by Staci Tejeda MD 06/07/18 09:54 : -Uro consulted for beside cysto due to inability to pass elizondo -ASA and eliquis held -has required antipsychotics nightly due to agitation -start nightly ri Original Note: - Subjective Subjective: Pt pulled out elizondo last night due to agitation with gross hematuria in diaper. Expressing urge to void. Denies knee pain - Objective Vital Signs & Weight: Vital Signs (12 hours) Temp Pulse Resp BP Pulse Ox 06/07/18 04:00 97.5 F L 66 18 135/76 97 06/06/18 20:00 98 06/06/18 19:54 97.8 F 68 19 121/74 98 Weight Admit Weight 66.678 kg Weight 68.765 kg I&O: 06/05/18 06/06/18 06/07/18 06:59 06:59 06:59 Intake Total 1480 3135 Output Total 1200 1775 Balance 280 1360 Result Diagrams: 06/07/18 15:48 06/07/18 08:26 Phys Exam - Physical Examination Constitutional: NAD HEENT: PERRLA, moist MMs Neck: full ROM Respiratory: no wheezing, clear to auscultation bilateral afib Gastrointestinal: soft, non-tender Musculoskeletal: no edema left knee, mildly erythematous and tender to touch Neurological: non-focal, moves all 4 limbs Deviation from normal: agitated Skin: cap refill <2 seconds Dx/Plan (1) Acute gout Code(s): M10.9 - GOUT, UNSPECIFIED Status: Acute (2) CKD (chronic kidney disease) Code(s): N18.9 - CHRONIC KIDNEY DISEASE, UNSPECIFIED Status: Acute (3) Elevated troponin Code(s): R74.8 - ABNORMAL LEVELS OF OTHER SERUM ENZYMES Status: Acute (4) Atrial fibrillation with normal ventricular rate Code(s): I48.91 - UNSPECIFIED ATRIAL FIBRILLATION Status: Acute (5) HTN (hypertension) Code(s): I10 - ESSENTIAL (PRIMARY) HYPERTENSION Status: Chronic Qualifiers: Hypertension type: essential hypertension Qualified Code(s): I10 - Essential (primary) hypertension (6) NSTEMI (non-ST elevated myocardial infarction) Code(s): I21.4 - NON-ST ELEVATION (NSTEMI) MYOCARDIAL INFARCTION Status: Acute - Plan Plan: This is an 87 yo male with a pmh of HTN, HLD, atrial fibrillation, and a hx of CVA #Traumatic elizondo removal, urainry retnetion -patient has had elizondo due to AUR from immobility in setting of traumatic falls. Several unsuccessful attempts to pass coude catheter. PVR 450-500. -no prior hx of BPH -ASA and eliquis held -Urology consulted #Acute gout -synovial fluid analysis shows inflammatory pattern with + monosodium urate crystals. 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 benefits #HLD -Continue home meds #HTN -Hold lisinopril, continue HCTZ -BP normal-high, stable -IV antihypertensives PRN Will discuss w/ Dr. Jones dvt ppx: eliquis Dispo: 1.) AMS-Pt. with AMS this morning, garrett . Continue re- orienting. Melatonin qhs to help with readjusting sleep wake cycle. 2.) Acute gout-prednisone for 7 days, improving. Consider re-starting allopurinol for ppx outpt. Fluid cx NGTD @ 48hrs 3.) NSTEMI-medical mgmt w/ statin, ASA, BB. 4.) Work with PT and CM for placement vs. home with home health 4)Acute urinary retention in setting of traumatic elizondo removal. -Uro consulted Addendum - Attending - Attending Attestation Date/Time: 06/07/18 2575 I personally evaluated the patient and discussed the management with Dr. Tejeda. I agree with the History, Examination, Assessment and Plan documented above with any addition or exceptions noted below. Pt had traumatic elizondo removal this morning due to pt's agitation when he pulled it out. He has been sun-downing. Will start low dose risperdal at night. Urology was consulted who came to bedside for cystoscopy and was able to replace the elizondo. Will monitor. Pt's family has agreed on short-term snf placement. Will work with case mgmt on placement.
[2018-06-07 09:06] LABS: Anion Gap 13 mmol/L (10-20); BUN (Urea Nitrogen) 29 mg/dL (8.4-25.7); Calc. Creatinine Clearance 27 mL/min (70-130); Calcium 9.2 mg/dL (7.8-10.44); Carbon Dioxide 19 mmol/L (23-31); Chloride 103 mmol/L (98-107); Estimated GFR-MDRD 35; Glucose 106 mg/dL (83-110); Magnesium 1.6 mg/dL (1.6-2.6); Sodium 131 mmol/L (136-145)
[2018-06-07] MEDS: Apixaban 2.5 MG TAB PO SCH (10:38)
[2018-06-07] MEDS: Aspirin 81 mg Enteric Coated Tablet PO SCH (10:39)
[2018-06-07] MEDS: Carvedilol 3.125 MG TAB PO SCH ×2 (10:45→17:00)
[2018-06-07] MEDS: predniSONE 20 MG TAB PO SCH (10:45)
[2018-06-07] MEDS: Tamsulosin HCl 0.4 MG CAP PO SCH (10:45)
[2018-06-07] MEDS: Hydrochlorothiazide 25 MG TAB PO SCH ×2 (10:45→20:25)
[2018-06-07] MEDS: Potassium Chloride 20 MEQ TAB PO SCH ×2 (10:45→17:00)
[2018-06-07] MEDS: Atorvastatin Calcium 40 MG TAB PO SCH (10:45)
[2018-06-07] MEDS: Fish Oil 1,000 MG CAP PO SCH (10:45)
[2018-06-07] MEDS: Acetaminophen 500 MG TAB PO PRN (10:45)
[2018-06-07] MEDS: Multivit, Therapeutic 1 TAB PO SCH (10:45)
--- NOTE | 2018-06-07 13:06 | ULT ---
Exam: Bilateral renal ultrasound complete: HISTORY: Renal insufficiency FINDINGS: Minimal coarse liver echogenicity, possibly minimal nonspecific hepatic parenchymal process. Right pl eural effusion. Small right kidney measuring 8.4 x 3.8 x 4.3 cm with minimal fullness of the right renal pelvis and upper collecting system. Left kidney measures 10 x 4.9 x 5.0 cm. No perinephric process. Unremarkable appearing bladder. IMPRESSION: Small kidneys bilaterally with mild fullness of the right renal pelvis and upper collecting system. N o left-sided hydronephrosis. Right pleural effusion. Coarse liver echogenicity.
[2018-06-07 13:15] LABS: Bacteria/HPF None Seen HPF (None Seen); Hyaline Casts/LPF 0-3 HYALINE CAST LPF (0-3 Hyaline); Pathc Cast-AUWi Flag 0.38 (0-2.49); Squamous Epithelial 0-3 HPF (0-3)
[2018-06-07 13:19] LABS: Clarity Turbid (Clear); Protein, Urine (Dipstick) 100 mg/dL (Neg-Trace); Specific Gravity, Urine 1.018 (1.002-1.036); Yeast-AUWi Flag 108.5 (0-25.0)
[2018-06-07 13:20] LABS: Blood, Urine Large (Negative)
[2018-06-07 13:25] LABS: Leukocyte Negative (Negative)
[2018-06-07 13:26] LABS: Bilirubin Negative (Negative); Glucose, Urine (Dipstick) Negative (Negative); Nitrite Negative (Negative); Urobilinogen 0.2 mg/dL (0.2-1.0)
[2018-06-07 13:29] LABS: RBC/HPF GREATER THAN 50-TNTC HPF (0-3)
[2018-06-07 13:30] LABS: Yeast-All Forms None Seen HPF (None Seen)
[2018-06-07 16:13] LABS: Hemoglobin 13.7 g/dL (14.0-18.0)
--- NOTE | 2018-06-07 18:16 | CON ---
DATE OF CONSULTATION: 06/07/2018 REASON FOR CONSULTATION: Traumatic Lundy catheter removal, subsequent urinary retention. HISTORY OF PRESENT ILLNESS: Mr. Costa is an 87-year-old male, who was admitted on June 03, due to a recent fall. Per the patient's family, the patient has history of frequent falls. It appears that he was confused, fell, has some bruising around his nose. He is followed by Dr. Tejeda due to history of renal insufficiency. Cardiology was consulted due to AFib, syncope. He has been seen and evaluated by Dr. García and an echocardiogram, as his EF is normal and advanced age, advised regarding medical therapy. Cardiology did initiate Eliquis on this admission due to AFib. The patient does not recall removing his Lundy catheter, this happened last night. Per review of records as he is a poor historian, he has been confused, requiring sedatives and anxiolytics at night. He is oriented x2. Daughter is at bedside. The patient himself denies obstructive urinary symptoms or incontinence preceding hospital stay. Denies prior intervention for BPH or history of prostate cancer. Per review of clinical status with nursing staff, he was monitored briefly for CIS, PVR documented per nursing staff 80 mL. Subsequently, an indwelling Lundy catheter was placed to gravity. I am unsure why an indwelling Lundy catheter was subsequently chosen. Per nursing staff, PVR previous of 80 mL. Nevertheless, he was confused last night and pulled out his Lundy catheter, subsequently unable to void with gross hematuria and passage of clots. Bladder scan is 450 to 500. Multiple attempts of a Lundy catheter by nursing staff unable to pass. Therefore, urologic consultation was obtained. Dr. Mills from [facility] is on-call today, however, as he is unable to be present as he is in surgery, our office was contacted to see if we can aid in this patient's care. PAST MEDICAL HISTORY: Hypertension, seasonal allergies, hyperlipidemia, and AFib. PAST SURGICAL HISTORY: Appendectomy. SOCIAL HISTORY: He denies tobacco or illicit drug use. He states that he works at a [employer]. Extended family at bedside. He lives alone in a private residence. CURRENT MEDICATIONS: 1. Tylenol. 2. Eliquis, which was recently started 2.5 mg b.i.d., morning dose was held. 3. Aspirin was held this morning due to hematuria. 4. Lipitor. 5. Coreg. 6. Colace. 7. Fish oil. 8. Hydrochlorothiazide b.i.d. 9. Normodyne. 10. Melatonin. 11. Singulair. 12. Nitrostat. 13. Zofran p.r.n. 14. K-Dur. 15. Prednisone. 16. Tramadol. 17. Geodon. 18. He has been on Flomax, initiated June 07 by Primary Service. 19. I did initiate Avodart on consultation. PHYSICAL EXAMINATION: VITAL SIGNS: His vital signs are stable, 98, 94, 14, 98, 179/94. Urine output 850. There is gross blood in his diaper. GENERAL: The patient is somewhat uncooperative to physical exam, requiring some nursing assist to evaluate the patient. HEENT: There is some bruising around his nares. No evidence of hematoma. HEART: Regular rate. LUNGS: Clear. ABDOMEN: Soft. There is some tenderness in the suprapubic region as he has acute urinary retention. : Uncircumcised phallus. Meatus is grossly unremarkable. There is gross blood and clot at his meatus. Testes are descended. Prostate volume is difficult to assess. No gross nodularity is appreciated. His prostatic fossa appears to be flat and wide. EXTREMITIES: No cyanosis, clubbing or edema. PERTINENT LABS: He was admitted with sodium of 135, sodium today is 131; BUN 29 ; creatinine 1.8, admitting creatinine of 2.6, baseline creatinine back in 2016 is 1.3 to 1.2. Urinalysis on admission, 30 protein, 0 to 3 rbc's, 0 to 3 wbc's. BEDSIDE PROCEDURE: The patient was formally prepped around the genital region. I did gently attempt to pass a 16-Tanzanian coude and there was resistance, therefore , I did not forcibly engage. He was advised regarding diagnostic cystoscopy, catheter placement over guidewire. Family present. Consent signed. He was provided Levaquin. Viscous lidocaine was injected. Flexible cystoscopy was passed. There was multiple blood clots in his urethra, which were lushed out. At the level of bulbar proximal penile urethra, there are multiple false passages. It is hard to see the true lumen of the urethra. I re-scoped him after irrigating clots out of his urethra. On subsequent passage, again I could not see a true lumen. We negotiated the scope, along the region that would most likely be a possible true lumen, Visualization is poor due to trauma. I was unable to ideally stage his prostate or his bladder due to hematuria. The wire was confirmed to be within the bladder pass an 18-[place] Councill Lundy catheter without any issues. There was gross blood in the bladder, dark maroon, which I flushed. There was immediate clearing with no gross clots. This was secured with StatLock x2. IMPRESSION AND PLAN: 1. Mr. Costa is an 87-year-old male with history of frequent falls. 2. Admitted due to loss of consciousness, fall, syncope workup. 3. Atrial fibrillation, recently started on Eliquis by Dr. García. 4. Prior history of PVR of 80 mL, Lundy catheter placed by Primary Service with traumatic Lundy catheter removal. 5. History of confusion, which persist. Lundy catheter placed under guidewire assist. He has high risk of urethral stricture due to multiple false passages found on cystoscopy. Recommend Flomax; Avodart initiated. Antibiotics advised as there are false passages, increased risk of UTI. He will require an indwelling Lundy catheter for minimum 1 weeks due to trauma ; subsequent voiding trial. Renal ultrasound is advised due to acute renal insufficiency, likely prerenal medication related as he was previously on PAULA inhibitors. Recommend IV fluids and monitor hyponatremia as it can contribute to mental confusion. will reach out to Dr. García regarding holding his Eliquis due to traumatic Lundy catheter removal, gross hematuria, high risk of recurrent hematuria. Recommend a voiding trial in 1 to 2 weeks. He will require placement in a 24- hour setting due to his mental capacity, confusion, high risk of fall, recurrent traumatic Lundy catheter removal. Spoke with nursing staff regarding 24-hour sitter due to risk of recurrent traumatic catheter removal. Spoke with Dr. Mills from [facility], who is on-call today. We'll coordinate outpatient follow-up with him for voiding trial. Job ID: [id number] MTDD
[2018-06-07] MEDS: Docusate 100 MG CAP PO PRN (20:26)
[2018-06-07] MEDS: Montelukast Sodium 10 mg Tablet PO SCH (20:26)
[2018-06-07] MEDS ORDERED: Ziprasidone 20 MG CAP PO SCH (21:00)
[2018-06-07] MEDS ORDERED: Calcium Carbonate 500 MG ChewTAB PO PRN (22:30)
[2018-06-07] MEDS: Melatonin 3 MG TAB PO PRN (23:12)
[2018-06-08] MEDS: traMADol HCl 50 MG TAB PO PRN ×3 (00:17→21:38)
[2018-06-08] MEDS ORDERED: Lorazepam 2 MG/ML VIAL SLOW IVP SCH (01:15)
[2018-06-08] MEDS: Sodium Chloride 0.9% 1,000 ML IV SCH ×3 (04:38→20:42)
--- NOTE | 2018-06-08 06:52 | PDOC.FM ---
- Subjective Subjective: Agitate last night, had 4 point restrainst placed. Denies chest pain. Denies dysuria. Some blood in elizondo. - Objective MAR Reviewed: Yes Vital Signs & Weight: Vital Signs (12 hours) Temp Pulse Resp BP Pulse Ox 06/08/18 02:51 97.5 F L 69 19 155/94 H 95 06/08/18 00:07 75 20 153/94 H 98 06/07/18 19:45 100 06/07/18 19:40 97.4 F L 65 18 123/74 100 Weight Admit Weight 66.678 kg Weight 68.765 kg I&O: 06/06/18 06/07/18 06/08/18 06:59 06:59 06:59 Intake Total 3135 1390 Output Total 1775 850 Balance 1360 540 Result Diagrams: 06/08/18 07:14 06/08/18 06:59 Phys Exam - Physical Examination Constitutional: NAD HEENT: PERRLA Respiratory: no wheezing, clear to auscultation bilateral Cardiovascular: no significant murmur, irregular afib Gastrointestinal: soft Musculoskeletal: no edema left knee with mild tender to palpation, able to bend, no erythema Neurological: moves all 4 limbs Psychiatric: normal affect Deviation from normal: a&o x2 Skin: normal turgor, cap refill <2 seconds Dx/Plan (1) Chronic hyponatremia Code(s): E87.1 - HYPO-OSMOLALITY AND HYPONATREMIA Status: Acute (2) Acute gout Code(s): M10.9 - GOUT, UNSPECIFIED Status: Acute (3) Elevated troponin Code(s): R74.8 - ABNORMAL LEVELS OF OTHER SERUM ENZYMES Status: Acute (4) Atrial fibrillation with normal ventricular rate Code(s): I48.91 - UNSPECIFIED ATRIAL FIBRILLATION Status: Acute (5) HTN (hypertension) Code(s): I10 - ESSENTIAL (PRIMARY) HYPERTENSION Status: Chronic Qualifiers: Hypertension type: essential hypertension Qualified Code(s): I10 - Essential (primary) hypertension (6) NSTEMI (non-ST elevated myocardial infarction) Code(s): I21.4 - NON-ST ELEVATION (NSTEMI) MYOCARDIAL INFARCTION Status: Acute (7) Delirium Code(s): R41.0 - DISORIENTATION, UNSPECIFIED Status: Acute (8) CAN (acute kidney injury) Code(s): N17.9 - ACUTE KIDNEY FAILURE, UNSPECIFIED Status: Acute (9) CKD (chronic kidney disease) Code(s): N18.9 - CHRONIC KIDNEY DISEASE, UNSPECIFIED Status: Acute - Plan Plan: This is an 87 yo male with a pmh of HTN, HLD, atrial fibrillation, and a hx of CVA #Traumatic elizondo removal, acute urinary retention -Urology placed bedside elizondo on 06/07 -levaquin qdaily due to inc risk of infection -received 500mg yesterday, will dec to 250 daily -Urology on board #UTI -levaquin, as listed above -pending urine cx #Hyponatremia, chronic -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 Cx NGTD@48hrs -prednisone x7days, no NSAIDs or colchicine due to CAN -consider allopurinol outpt for ppx #HTN -Hold lisinopril, amlodipine -BP normal-high, stable -IV antihypertensives PRN #NSTEMI -troponins trended down, asx -Cardiology on board, no invasive intervention due to comorbidities -Continue medical mgmt with statin, BB -Hold ASA due to bleeding #CAN on CKD3 -Improved creatinine 2.14-> 2.07 -> 1.8, improving -Preprenal vs. 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 García #HLD -Continue home meds Will discuss w/ Dr. Jones dvt ppx: SCDs Dispo: pending placement, will discuss wtih case mgmt Addendum - Attending - Attending Attestation Date/Time: 06/08/18 1012 I personally evaluated the patient and discussed the management with Dr. Tejeda. I agree with the History, Examination, Assessment and Plan documented above with any addition or exceptions noted below. The patient is awake and alert this morning. He was again agitated overnight but risperdal wasn't started. Starting it tonight. Waiting on placement. Elizondo is draining clear urine. Get urine studies to work up hyponatremia.
[2018-06-08 07:29] LABS: Anion Gap 14 mmol/L (10-20); BUN (Urea Nitrogen) 28 mg/dL (8.4-25.7); Calc. Creatinine Clearance 30 mL/min (70-130); Calcium 8.6 mg/dL (7.8-10.44); Carbon Dioxide 14 mmol/L (23-31); Chloride 104 mmol/L (98-107); Estimated GFR-MDRD 41; Glucose 119 mg/dL (83-110); Potassium 4.3 mmol/L (3.5-5.1); Sodium 128 mmol/L (136-145)
[2018-06-08 07:51] LABS: #Lymphocytes 0.6 thou/uL (1.20-3.40); #Monocytes 0.8 thou/uL (0.11-0.59); #Neutrophils 10.7 thou/uL (1.40-6.50); %Eosinophils 0.1 % (0.0-10.0); %Lymphocytes 5.2 % (21.0-51.0); %Monocytes 6.7 % (0.0-10.0); Hemoglobin 13.5 g/dL (14.0-18.0); Mean Corpuscular HGB CONC 33.5 g/dL (32.0-36.0); Mean Corpuscular Hemoglobin 31.2 pg (27.0-31.0); Mean Platelet Volume 7.2 fL (7.4-10.4); Platelet Count 163 thou/uL (130-400); RBC Distribution Width 12.5 % (11.5-14.5); Red Blood Cell (RBC) Count 4.34 mill/uL (4.70-6.10); White Blood Cell (WBC) Count 12.1 thou/uL (4.8-10.8)
--- NOTE | 2018-06-08 08:56 | PRG ---
DATE OF SERVICE: 06/08/2018 SUBJECTIVE: The patient confused, required sedatives, currently on Ativan. Family at bedside. OBJECTIVE: VITAL SIGNS: Stable. He is afebrile. I's and O's, urine output 2325, clear yellow. : There is some bloody discharge at the meatus as expected due to recent catheterization trauma, traumatic Lundy catheter removal. PERTINENT LABORATORY DATA: White count 12, hemoglobin 13.5, stable, and platelet 163. Repeat urine culture preliminary pending, currently on Levaquin. IMPRESSION/PLAN: Mr. Costa is an 87-year-old male, whom I had seen urgently, due to traumatic Lundy catheter removal and acute urinary retention with gross hematuria. Dr. Mills from [facility] was on-call; however, as he was in a surgical case, I did see the patient to place the Lundy catheter at bedside. Cystoscopy demonstrated multiple false passages. Lundy catheter placed over guidewire, it is currently draining clear. I did conference with Dr. García, approved to hold Eliquis due to recent trauma and gross hematuria. Moreover, the patient is a high fall risk. I have informed the patient's family that there is a small risk of him developing a CVA; however, given his current circumstances in which he is high risk for a repeat trauma and recent gross hematuria due to clot retention, they agree to hold his Eliquis. I will inform Dr. Mills regarding the patient's course as he needs an outpatient followup with [facility] due to insurance issues. I would advise Lundy catheter to remain in situ for least 1 weeks due to trauma. Continue Flomax, Avodart, Levaquin while indwelling Lundy catheter remains in situ. [facility] to resume care as I provided emergent coverage. Job ID: [id number] MTDD
[2018-06-08] MEDS ORDERED: hydrOXYzine 10 MG TAB PO PRN (09:15)
[2018-06-08] MEDS: Hydrochlorothiazide 25 MG TAB PO SCH ×2 (09:18→20:49)
[2018-06-08] MEDS: predniSONE 20 MG TAB PO SCH (09:18)
[2018-06-08] MEDS: Carvedilol 3.125 MG TAB PO SCH ×2 (09:18→16:23)
[2018-06-08] MEDS: Dutasteride 0.5 MG CAP PO SCH (09:19)
[2018-06-08] MEDS: Atorvastatin Calcium 40 MG TAB PO SCH (09:19)
[2018-06-08] MEDS: Fish Oil 1,000 MG CAP PO SCH (09:19)
[2018-06-08] MEDS: Multivit, Therapeutic 1 TAB PO SCH (09:19)
[2018-06-08] MEDS: Tamsulosin HCl 0.4 MG CAP PO SCH (09:19)
[2018-06-08] MEDS: Potassium Chloride 20 MEQ TAB PO SCH ×2 (09:19→16:24)
[2018-06-08 13:26] LABS: Legionella Urinary Ag Negative (Negative)
[2018-06-08] MEDS ORDERED: Amlodipine 5 MG TAB PO SCH (14:44)
[2018-06-08 18:10] LABS: Syphilis Antibody Nonreactive (Nonreactive); Syphilis Antibody Index 0.08 S/CO (<1.00 Non-Reactive)
[2018-06-08 18:23] LABS: Folate (Folic Acid) 15.4 ng/mL (7.0-31.4)
[2018-06-08] MEDS: Montelukast Sodium 10 mg Tablet PO SCH (20:43)
[2018-06-08] MEDS ORDERED: risperiDONE 0.25 MG TAB PO SCH (21:00)
[2018-06-09] MEDS ORDERED: Lorazepam 2 MG/ML VIAL SLOW IVP SCH (00:45)
[2018-06-09] MEDS: Sodium Chloride 0.9% 1,000 ML IV SCH ×3 (05:13→16:35)
--- NOTE | 2018-06-09 06:23 | PDOC.FM ---
- Subjective Subjective: Patient agitated last night requiring 4 point restraints. Urine in elizondo clear. Denies chest pain, dysuria. - Objective MAR Reviewed: Yes Vital Signs & Weight: Vital Signs (12 hours) Temp Pulse Resp BP Pulse Ox 06/09/18 04:00 97.5 F L 86 20 160/102 H 96 06/08/18 23:15 97.5 F L 75 20 148/82 H 99 06/08/18 19:45 97.4 F L 70 20 166/96 H 100 Weight Admit Weight 66.678 kg Weight 68.765 kg I&O: 06/07/18 06/08/18 06/09/18 06:59 06:59 06:59 Intake Total 3089 Output Total 2325 Balance 764 Result Diagrams: 06/09/18 07:22 06/09/18 07:22 Phys Exam - Physical Examination sleepy HEENT: PERRLA, moist MMs no in respiratory distress Cardiovascular: RRR, no significant murmur afib Gastrointestinal: soft Musculoskeletal: no edema Neurological: non-focal, moves all 4 limbs Psychiatric: A&O x 3 Skin: no rash Dx/Plan (1) Chronic hyponatremia Code(s): E87.1 - HYPO-OSMOLALITY AND HYPONATREMIA Status: Acute (2) Acute gout Code(s): M10.9 - GOUT, UNSPECIFIED Status: Acute (3) Elevated troponin Code(s): R74.8 - ABNORMAL LEVELS OF OTHER SERUM ENZYMES Status: Acute (4) Atrial fibrillation with normal ventricular rate Code(s): I48.91 - UNSPECIFIED ATRIAL FIBRILLATION Status: Acute (5) HTN (hypertension) Code(s): I10 - ESSENTIAL (PRIMARY) HYPERTENSION Status: Chronic Qualifiers: Hypertension type: essential hypertension Qualified Code(s): I10 - Essential (primary) hypertension (6) NSTEMI (non-ST elevated myocardial infarction) Code(s): I21.4 - NON-ST ELEVATION (NSTEMI) MYOCARDIAL INFARCTION Status: Acute (7) Delirium Code(s): R41.0 - DISORIENTATION, UNSPECIFIED Status: Acute (8) CAN (acute kidney injury) Code(s): N17.9 - ACUTE KIDNEY FAILURE, UNSPECIFIED Status: Acute (9) CKD (chronic kidney disease) Code(s): N18.9 - CHRONIC KIDNEY DISEASE, UNSPECIFIED Status: Acute - Plan Plan: This is an 87 yo male with a pmh of HTN, HLD, atrial fibrillation, and a hx of CVA #Traumatic elizondo removal, acute urinary retention -Urology placed bedside elizondo on 06/07 -levaquin qdaily due to inc risk of infection -received 500mg yesterday, will dec to 250 daily -Urology on board #UTI -continue levaquine -pending urine cx #Hyponatremia, chronic -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 coreg more so for mortality benefit #Acute gout -synovial fluid analysis shows inflammatory pattern with + monosodium urate crystals. Cx NGTD@48hrs -prednisone x7days, no NSAIDs or colchicine due to CAN -consider allopurinol outpt for ppx #NSTEMI -troponins trended down, asx -Cardiology on board, no invasive intervention due to comorbidities -Continue medical mgmt with statin, BB -Hold ASA due to bleeding -inc. coreg to 6.25 BID for mortality benefit #CAN on CKD3 -Improved creatinine 2.14-> 2.07 -> 1.8 -> 1.6, improving -Preprenal vs. CKD, continue gentle fluids -Hold lisinopril; low gfr -Consider establishing with outpt payroll lead #ground level fall with knee contusion -Negative xrays for knee fracture -CT of head negative for intracranial findings -Tylenol and tramadol for pain management #Atrial fibrilation -Rate controlled, continue home aspirin -hold eliquis due to active bleeding, will reach out to Dr. García #HLD -Continue home meds Will discuss w/ Dr. Jones dvt ppx: SCDs Dispo: pending placement, will discuss [facility] case mgmt to see if can look at areas outside of [facility] Addendum - Attending - Attending Attestation Date/Time: 06/09/18 1060 I personally evaluated the patient and discussed the management with Dr. Tejeda. I agree with the History, Examination, Assessment and Plan documented above with any addition or exceptions noted below. The patient was again agitated overnight requiring restraints. Will increase risperdal. Waiting on placement. CAN is improving. Hyponatremia is improving. Elizondo in place draining clear urine.
[2018-06-09 08:01] LABS: #Monocytes 1.6 thou/uL (0.11-0.59); #Neutrophils 9.8 thou/uL (1.40-6.50); %Basophils 0.1 % (0.0-1.0); %Eosinophils 0.2 % (0.0-10.0); %Lymphocytes 8.3 % (21.0-51.0); %Monocytes 12.8 % (0.0-10.0); %Neutrophils 78.7 % (42.0-75.0); Mean Corpuscular HGB CONC 33.8 g/dL (32.0-36.0); Mean Corpuscular Hemoglobin 31.2 pg (27.0-31.0); Mean Corpuscular Volume 92.3 fL (78.0-98.0); Mean Platelet Volume 6.9 fL (7.4-10.4); Platelet Count 191 thou/uL (130-400); RBC Distribution Width 12.5 % (11.5-14.5); Red Blood Cell (RBC) Count 4.47 mill/uL (4.70-6.10); White Blood Cell (WBC) Count 12.5 thou/uL (4.8-10.8)
[2018-06-09 08:19] LABS: Anion Gap 13 mmol/L (10-20); BUN (Urea Nitrogen) 31 mg/dL (8.4-25.7); Calc. Creatinine Clearance 35 mL/min (70-130); Calcium 8.9 mg/dL (7.8-10.44); Carbon Dioxide 18 mmol/L (23-31); Chloride 103 mmol/L (98-107); Estimated GFR-MDRD 40; Glucose 112 mg/dL (83-110); Potassium 3.8 mmol/L (3.5-5.1); Sodium 130 mmol/L (136-145)
[2018-06-09] MEDS ORDERED: Carvedilol 3.125 MG TAB PO SCH (08:31)
[2018-06-09] MEDS ORDERED: Carvedilol 6.25 MG TAB PO SCH (08:45)
[2018-06-09] MEDS ORDERED: Amlodipine 5 MG TAB PO SCH ×2 (09:00)
[2018-06-09] MEDS: predniSONE 20 MG TAB PO SCH (09:17)
[2018-06-09] MEDS: Dutasteride 0.5 MG CAP PO SCH (09:17)
[2018-06-09] MEDS: Potassium Chloride 20 MEQ TAB PO SCH ×2 (09:17→16:31)
[2018-06-09] MEDS: Atorvastatin Calcium 40 MG TAB PO SCH (09:17)
[2018-06-09] MEDS: Tamsulosin HCl 0.4 MG CAP PO SCH (09:17)
[2018-06-09] MEDS: Carvedilol 3.125 MG TAB PO SCH (09:20)
[2018-06-09] MEDS: Fish Oil 1,000 MG CAP PO SCH (09:22)
[2018-06-09] MEDS: Amlodipine 5 MG TAB PO SCH (09:22)
[2018-06-09] MEDS: Multivit, Therapeutic 1 TAB PO SCH (09:22)
[2018-06-09] MEDS: Carvedilol 6.25 MG TAB PO SCH (16:32)
[2018-06-09] MEDS: Docusate 100 MG CAP PO PRN (16:32)
[2018-06-09] MEDS: Montelukast Sodium 10 mg Tablet PO SCH (20:49)
[2018-06-09] MEDS ORDERED: risperiDONE 0.25 MG TAB PO SCH (21:00)
[2018-06-09] MEDS: Melatonin 3 MG TAB PO PRN (22:49)
[2018-06-09] MEDS: traMADol HCl 50 MG TAB PO PRN (22:49)
[2018-06-10] MEDS ORDERED: Lorazepam 2 MG/ML VIAL SLOW IVP SCH ×2 (00:15→01:45)
[2018-06-10] MEDS: Sodium Chloride 0.9% 1,000 ML IV SCH ×2 (00:26→15:57)
[2018-06-10] MEDS ORDERED: risperiDONE 0.25 MG TAB PO SCH (06:05)
--- NOTE | 2018-06-10 06:12 | PDOC.FM ---
- Subjective Subjective: Patient is sleepy after receiving medications. Per daughter he was not able to use left hand yesteray; has not had BM. Nurse reported no other events. Daughter also says he wasn't able to see but per nursing staff they were able to converse with him yesterday, no concern for vision changes. - Objective Vital Signs & Weight: Vital Signs (12 hours) Temp Pulse Resp BP Pulse Ox 06/10/18 05:30 79 24 H 164/98 H 95 06/10/18 00:00 75 163/94 H 06/09/18 22:45 97.8 F 77 24 H 176/97 H 99 06/09/18 20:30 97.3 F L 83 24 H 169/93 H 97 Weight Admit Weight 66.678 kg Weight 81.919 kg I&O: 06/08/18 06/09/18 06/10/18 06:59 06:59 06:59 Intake Total 3089 1640 4650 Output Total 2325 1500 2975 Balance 762 392 7939 Result Diagrams: 06/10/18 06:00 06/10/18 06:00 Phys Exam - Physical Examination Constitutional: NAD pt sleeping unable to perform neuro exam HEENT: moist MMs Respiratory: no wheezing, clear to auscultation bilateral no respiratory distress Cardiovascular: gallop, irregular afib Gastrointestinal: soft, non-tender, positive bowel sounds Musculoskeletal: no edema, pulses present Neurological: non-focal, moves all 4 limbs unable to asses due to mental status Skin: cap refill <2 seconds Dx/Plan (1) Chronic hyponatremia Code(s): E87.1 - HYPO-OSMOLALITY AND HYPONATREMIA Status: Acute (2) Acute gout Code(s): M10.9 - GOUT, UNSPECIFIED Status: Acute (3) Elevated troponin Code(s): R74.8 - ABNORMAL LEVELS OF OTHER SERUM ENZYMES Status: Acute (4) Atrial fibrillation with normal ventricular rate Code(s): I48.91 - UNSPECIFIED ATRIAL FIBRILLATION Status: Acute (5) HTN (hypertension) Code(s): I10 - ESSENTIAL (PRIMARY) HYPERTENSION Status: Chronic Qualifiers: Hypertension type: essential hypertension Qualified Code(s): I10 - Essential (primary) hypertension (6) NSTEMI (non-ST elevated myocardial infarction) Code(s): I21.4 - NON-ST ELEVATION (NSTEMI) MYOCARDIAL INFARCTION Status: Acute (7) Delirium Code(s): R41.0 - DISORIENTATION, UNSPECIFIED Status: Acute (8) CAN (acute kidney injury) Code(s): N17.9 - ACUTE KIDNEY FAILURE, UNSPECIFIED Status: Acute (9) CKD (chronic kidney disease) Code(s): N18.9 - CHRONIC KIDNEY DISEASE, UNSPECIFIED Status: Acute - Plan Plan: This is an 87 yo male with a pmh of HTN, HLD, atrial fibrillation, and a hx of CVA #Nocturnal delirium -likely from since in evenings -delirium w/u has been negative including TSH, B12, RPR -requiring ativan 0.5 even with respiridal and ataraxn -geodon ineffective -increasing risperidal to 2mg, give earlier -f not working can switch to seroquel #Left arm weakness -concern for stroke, at baseline no issues -will perform CT scan -will return when pt more awake to do neuro exam #Traumatic elizondo removal, acute urinary retention -Urology placed bedside elizondo on 06/07 -levaquin qdaily due to inc risk of infection per uro -elizondo for 1-2 week duraration -continue levaquin, will need it in for duration of catheter -f/u with [facility] (patient's insurance) #UTI -continue levaquin -presumptive enterococcus <10,000 units, could also be contaminant -will double cover with macrobid to see if improves delirium -pending sensitivities #Hyponatremia, chronic -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 coreg more so for mortality benefit & BP reduction #Acute gout -synovial fluid analysis shows inflammatory pattern with + monosodium urate crystals. Cx NGTD@48hrs -prednisone x7days, no NSAIDs or colchicine due to CAN -consider allopurinol outpt for ppx #NSTEMI -troponins trended down, asx -Cardiology on board, no invasive intervention due to comorbidities -Continue medical mgmt with statin, BB -Hold ASA due to bleeding -inc. coreg to 6.25 BID for mortality benefit #CAN on CKD3 -Improved creatinine 2.14-> 2.07 -> 1.8 -> 1.6, improving -Preprenal vs. CKD, continue gentle fluids -Hold lisinopril; low gfr -Consider establishing with outpt manager of school #ground level fall with knee contusion -Negative xrays for knee fracture -CT of head negative for intracranial findings -Tylenol and tramadol for pain management #Atrial fibrilation -Rate controlled, continue home aspirin -hold eliquis due to active bleeding, will reach out to Dr. García #HLD -Continue home meds Will discuss w/ Dr. Jones dvt ppx: SCDs Dispo: Pending placement, referral sent to [facility] Addendum - Attending - Attending Attestation Date/Time: 06/10/18 5290 I personally evaluated the patient and discussed the management with Dr. Tejeda. I agree with the History, Examination, Assessment and Plan documented above with any addition or exceptions noted below. The patient was again agitated overnight. He received his risperdal and also required ativan but is very sleepy this morning. Daughter at bedside states she is concerned that he cannot use his left hand and they noticed it during the day yesterday. He would try to turkey picker his left hand with his right and stated it wasn't working. They did not notify anybody of this. Pt is too somnolent for neuro exam at this time. Will get CT head. Delirium workup shows no significant lab abnormalities. Discussed this with the daughter at bedside and that is confusion that starts in the evening and usually clears mid- morning is fairly classic for delirium. She voiced understanding and expressed her thanks for his care. Waiting to see if [facility] will accept pt. Increasing risperdal tonight and will schedule it at 6, an hour before he usually tries to go to bed. 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 Will discuss with neurosurgery.
[2018-06-10 06:18] LABS: #Monocytes 1.4 thou/uL (0.11-0.59); %Basophils 0.1 % (0.0-1.0); %Eosinophils 0.2 % (0.0-10.0); %Lymphocytes 8.4 % (21.0-51.0); %Monocytes 12.6 % (0.0-10.0); %Neutrophils 78.7 % (42.0-75.0); Mean Corpuscular HGB CONC 34.1 g/dL (32.0-36.0); Mean Corpuscular Hemoglobin 31.5 pg (27.0-31.0); Mean Corpuscular Volume 92.2 fL (78.0-98.0); Mean Platelet Volume 6.4 fL (7.4-10.4); Platelet Count 199 thou/uL (130-400); RBC Distribution Width 12.3 % (11.5-14.5); Red Blood Cell (RBC) Count 4.46 mill/uL (4.70-6.10); White Blood Cell (WBC) Count 11.4 thou/uL (4.8-10.8)
[2018-06-10 06:38] LABS: Anion Gap 12 mmol/L (10-20); BUN (Urea Nitrogen) 30 mg/dL (8.4-25.7); Calc. Creatinine Clearance 38 mL/min (70-130); Calcium 8.6 mg/dL (7.8-10.44); Carbon Dioxide 18 mmol/L (23-31); Chloride 104 mmol/L (98-107); Estimated GFR-MDRD 43; Glucose 129 mg/dL (83-110); Sodium 130 mmol/L (136-145)
--- NOTE | 2018-06-10 09:21 | CT ---
EXAM: CT Brain WO Con PROVIDED CLINICAL HISTORY: Confusion COMPARISON: CT 06/03/2018 FINDINGS: The ventricular system is unchanged in size and morphology. There is a new tiny left parafalcine subd ural hematoma without associated mass effect. Extensive remote ischemic changes are redemonstrated. Nasopharyngeal mass is stable. Erosion of the pterygoid plates is noted. The extracranial soft tissue s and osseous structures appear otherwise unremarkable. IMPRESSION: 1. Tiny left parafalcine subdural hematoma. Result communicated to the patient's nurse, Johnna at 9:17 AM 06/10/2018. 2. Redemonstration of nasopharyngeal mass.
[2018-06-10] MEDS ORDERED: Nitrofurantoin Monohyd/M-Cryst 100 MG CAP PO ONE (10:00)
[2018-06-10] MEDS ORDERED: Labetalol HCl 100 MG/20 ML VIAL SLOW IVP PRN (11:06)
[2018-06-10] MEDS ORDERED: hydrALAZINE 20 MG/ML VIAL SLOW IVP PRN (11:06)
[2018-06-10] MEDS ORDERED: Labetalol 5 MG/ML SYRINGE (IV ROOM) SLOW IVP PRN (11:14)
[2018-06-10] MEDS: Fish Oil 1,000 MG CAP PO SCH (12:37)
[2018-06-10] MEDS: Carvedilol 6.25 MG TAB PO SCH ×2 (12:37→17:05)
[2018-06-10] MEDS: predniSONE 20 MG TAB PO SCH (12:37)
[2018-06-10] MEDS: Multivit, Therapeutic 1 TAB PO SCH (12:37)
[2018-06-10] MEDS: Amlodipine 5 MG TAB PO SCH (12:38)
[2018-06-10] MEDS: Dutasteride 0.5 MG CAP PO SCH (12:38)
[2018-06-10] MEDS: Atorvastatin Calcium 40 MG TAB PO SCH (12:38)
[2018-06-10] MEDS: Tamsulosin HCl 0.4 MG CAP PO SCH (12:38)
[2018-06-10] MEDS: Potassium Chloride 20 MEQ TAB PO SCH ×2 (12:59→17:04)
[2018-06-10] MEDS ORDERED: Milk Of Magnesia 30 ML UDCUP PO SCH (16:45)
[2018-06-10] MEDS: risperiDONE 1 MG TAB PO SCH (18:08)
--- NOTE | 2018-06-10 18:10 | CON ---
DATE OF CONSULTATION: This is Edward Soto PA-C dictating a report for Navid Gillis MD. This is a 50-minute initial patient evaluation of which greater than 50% of the exam was spent counseling and coordinating the patient's care. Remainder of the exam was spent in review of the patient's medical records and appropriate imaging studies. CHIEF COMPLAINT: Status post fall 1 week ago with probable non-STEMI and possible CVA with trace falcine subdural hematoma. HISTORY OF PRESENT ILLNESS: Mr. Costa is a pleasant 87-year-old male, who was seen in consultation for the above complaints. The patient apparently fell 7 days ago and had a negative CT scan, however, was found to have a non-STEMI as well as possible CVA, and was placed on Eliquis as well as 81 mg aspirin. At home, he was on a previous 325 mg aspirin. Due to some delirium, head CT was obtained today that showed a very trace left parafalcine subdural hematoma. This is not causing any type of mass effect or midline shift. The patient has significant atrophy in the brain matter. Nonetheless, the patient has no neck pain or headache. PHYSICAL EXAMINATION: The patient is awake, alert, and appropriate. He is missing his dentition, so it is slightly hard to understand. GCS is 15. He follows commands equally in all 4 extremities and does not appear to be with any neurologic focal deficit. He does not appear to have any facial droop. He is able to correctly identify a pen and define its purpose. IMPRESSION/DIAGNOSIS: Status post non-ST elevation myocardial infarction and possible cerebrovascular accident, multiple blood thinners with trace left parafalcine subdural hematoma. PLAN: I have discussed the patient's case and imaging with Dr. Gillis. At this time, the patient does not require any type of neurosurgical intervention. However, he needs to remain off all blood thinners for the next 2 weeks. We will plan to repeat a head CT at that time and hopefully will be able to restart the patient on some sort of blood thinner, especially given his multiple comorbidities. However, with increased risk of falls, we will have to await the risks and benefits regarding this. Nonetheless, I would like his systolic blood pressure remain less than 150. But again, no neurosurgery is warranted, so diet is as tolerated from neurosurgical standpoint. Please call with any changes in patient's neurologic status. Otherwise, we will arrange for outpatient followup as outlined above. Job ID: [id number]
[2018-06-10] MEDS: Docusate 100 MG CAP PO PRN (20:49)
[2018-06-10] MEDS: Montelukast Sodium 10 mg Tablet PO SCH (20:49)
[2018-06-10] MEDS: Nitrofurantoin Monohyd/M-Cryst 100 MG CAP PO SCH (20:50)
[2018-06-10] MEDS ORDERED: risperiDONE 1 MG TAB PO SCH ×2 (21:00)
--- NOTE | 2018-06-10 21:44 | PDOC.EVN ---
Event Note - Event Note Event Note: Transition of care note: Mr. Costa is an 87 yo M who came to the ER after a ground level landing on his left knee and face. At time of admission left knee xray and CT brain were negative for fracture and bleed. He was admitted for an incidental find of elevated indeterminate troponins in the absence of chest pain. Patient developed NSTEMI. Cardiology was consulted but patient was not a good candidate for cardiac cath due to multiple comorbidities. Patient has a history of chronic afib, in which he was started on eliquis by cardiology. Patient then developed an acute gout flare of the knee and was treated for this with a 7 day course of prednisone. Patient's hospital course was complicated by the development of nocturnal delirium likely due to sundowning in the absence of negative infectious and delirium workup. In his he pulled out his indwelling elizondo which was placed in hospital for acute urinary retention likely from immobility. Urology was consulted. Patient underwent urgent bedside cysto with reintroduction of elizondo and started on levaquin. He will have to have elizondo in for 1-2 weeks. Anticoagulation discontinued. On 06/10, there was concern for stroke due to new onset left arm weakness. CT brain showed small subdural hematoma. Patient GCS 15 and normal neuro exam. Neuro was consulted, recommendations keep SBP <150. Currently, patient is pending placement to SNF vs. Inpatient rehab. This is a difficulty situation since patient has required 4 point restraints at night and his insurance has limited his options. We are working with case management to help facilitate this with family.
[2018-06-11] MEDS ORDERED: Lorazepam 2 MG/ML VIAL SLOW IVP PRN (00:32)
[2018-06-11 06:36] LABS: Anion Gap 18 mmol/L (10-20); BUN (Urea Nitrogen) 31 mg/dL (8.4-25.7); Calc. Creatinine Clearance 35 mL/min (70-130); Calcium 8.7 mg/dL (7.8-10.44); Carbon Dioxide 14 mmol/L (23-31); Chloride 105 mmol/L (98-107); Estimated GFR-MDRD 39; Glucose 108 mg/dL (83-110); Potassium 5.6 mmol/L (3.5-5.1); Sodium 131 mmol/L (136-145)
--- NOTE | 2018-06-11 06:36 | PDOC.FM ---
- Subjective Subjective: Pt did well overnight. He had one episode of delirium but corrected with redirection. Denies any pain this morning. Daughter reports risperidal has improved his functioning. - Objective MAR Reviewed: Yes Vital Signs & Weight: Vital Signs (12 hours) Temp Pulse Resp BP BP Pulse Ox 06/11/18 06:09 171/86 H 06/11/18 04:10 98 06/11/18 00:00 97.1 F L 69 22 H 148/85 H 100 06/10/18 20:45 97.6 F 74 20 125/69 98 Weight Admit Weight 66.678 kg Weight 80.876 kg I&O: 06/09/18 06/10/18 06/11/18 06:59 06:59 06:59 Intake Total 1640 4650 770 Output Total 1500 2975 2850 Balance 140 1675 -2080 Result Diagrams: 06/11/18 07:53 06/11/18 04:38 Phys Exam - Physical Examination Constitutional: NAD Dry mm Neck: full ROM Respiratory: no wheezing, clear to auscultation bilateral Cardiovascular: no significant murmur normal rate irregular rhythm Gastrointestinal: soft, non-tender, no distention, positive bowel sounds Musculoskeletal: no edema, pulses present Neurological: non-focal, moves all 4 limbs Skin: cap refill <2 seconds Dx/Plan (1) Acute kidney injury superimposed on CKD Code(s): N17.9 - ACUTE KIDNEY FAILURE, UNSPECIFIED; N18.9 - CHRONIC KIDNEY DISEASE, UNSPECIFIED Status: Acute (2) Elevated troponin Code(s): R74.8 - ABNORMAL LEVELS OF OTHER SERUM ENZYMES Status: Acute (3) Atrial fibrillation with normal ventricular rate Code(s): I48.91 - UNSPECIFIED ATRIAL FIBRILLATION Status: Acute (4) Hyperbilirubinemia Code(s): E80.6 - OTHER DISORDERS OF BILIRUBIN METABOLISM Status: Acute (5) HTN (hypertension) Code(s): I10 - ESSENTIAL (PRIMARY) HYPERTENSION Status: Chronic Qualifiers: Hypertension type: essential hypertension Qualified Code(s): I10 - Essential (primary) hypertension - Plan Plan: This is an 87 yo male with a pmh of Atrial fibrillation, HTN, CKD Nocturnal delirium -Likely sundowning vs. lengthy hospital stay -Currently on risperidal, will monitor and assess need for changes -Geodon has not been effective Traumatic elizondo removal, s/p urology placed elizondo -Augmentin daily 2/2 risk of infection per urology -Elizondo for 1-2 weeks -f/u with [facility] UTI -As above, pending sensitivities Hyponatremia, chronic -D/C HCTZ, continue to monitor -Work up for hyponatremia HTN -Hold lisinopril due to renal function -On coreg and norvasc -PRN hydralazine and labetalol Acute gout -Continue prednisone, hold NSAIDs/ colchicine due to CAN -Consider allopurinol outpt NSTEMI Cardiology consulted -No invasive interventions -Hold ASA 2/2 bleed risk -Continue coreg CAN on CKD 3 -Improving -Likely needs outpt nephro GLF -Negative imaging for fractures Afib -Rate controlled -Holding ASA and eliquis 2/2 bleed, will restart after repeat brain CT and neurosurgery eval HLD -Continue home meds Addendum - Attending - Attending Attestation Date/Time: 06/11/18 1110 I personally evaluated the patient and discussed the management with Dr. Strong. I agree with the History, Examination, Assessment and Plan documented above with any addition or exceptions noted below. Patient resting comfortably this morning. Daughter reports significant improvement in his delirium and agitation with Risperdal. Cardiac function overall stable. Labs overall stable, will recheck potassium but no concerns for toxicity at this time. We are awaiting placement. Continue elizondo cath per Urology.
[2018-06-11] MEDS: Amlodipine 5 MG TAB PO SCH (08:03)
[2018-06-11] MEDS: Amoxicillin/Potassium Clav 500 MG TAB PO SCH ×2 (08:04→20:46)
[2018-06-11] MEDS: predniSONE 20 MG TAB PO SCH (08:04)
[2018-06-11] MEDS: Nitrofurantoin Monohyd/M-Cryst 100 MG CAP PO SCH ×2 (08:04→20:46)
[2018-06-11] MEDS: Carvedilol 6.25 MG TAB PO SCH ×2 (08:04→17:21)
[2018-06-11] MEDS: Potassium Chloride 20 MEQ TAB PO SCH ×2 (08:05→18:02)
[2018-06-11] MEDS: Multivit, Therapeutic 1 TAB PO SCH (08:12)
[2018-06-11] MEDS: Fish Oil 1,000 MG CAP PO SCH (08:12)
[2018-06-11] MEDS: Dutasteride 0.5 MG CAP PO SCH (08:12)
[2018-06-11] MEDS: Tamsulosin HCl 0.4 MG CAP PO SCH (08:12)
[2018-06-11 08:28] LABS: #Lymphocytes 0.9 thou/uL (1.20-3.40); #Monocytes 1.2 thou/uL (0.11-0.59); #Neutrophils 8.8 thou/uL (1.40-6.50); %Basophils 0.1 % (0.0-1.0); %Eosinophils 0.3 % (0.0-10.0); %Lymphocytes 8.2 % (21.0-51.0); %Monocytes 10.9 % (0.0-10.0); %Neutrophils 80.5 % (42.0-75.0); Hemoglobin 15.3 g/dL (14.0-18.0); Mean Corpuscular HGB CONC 34.2 g/dL (32.0-36.0); Mean Corpuscular Hemoglobin 31.6 pg (27.0-31.0); Mean Corpuscular Volume 92.4 fL (78.0-98.0); Mean Platelet Volume 6.7 fL (7.4-10.4); Platelet Count 181 thou/uL (130-400); RBC Distribution Width 12.4 % (11.5-14.5); Red Blood Cell (RBC) Count 4.83 mill/uL (4.70-6.10); White Blood Cell (WBC) Count 10.9 thou/uL (4.8-10.8)
--- NOTE | 2018-06-11 09:15 | PRG ---
DATE OF SERVICE: 06/11/2018 SUBJECTIVE: The patient is disoriented, baseline, daughter at bedside. OBJECTIVE: VITAL SIGNS: Stable. He is afebrile. I's and O's, urine output 1350, subsequently 1800, yellow. No saturation of his briefs consistent with hematuria. PERTINENT LABORATORY DATA: Creatinine 1.65, hemoglobin stable at 14. Urine culture demonstrating low count, Enterococcus on a stent, a 10,000 CFU. No further workup by microbiology on Levaquin. IMPRESSION AND PLAN: Mr. Costa is an 87-year-old male status post fall, dementia, urologic issues of traumatic Lundy catheter removal, Lundy catheter placement at bedside, multiple false passages seen. Has followup appointment that I provided with Dr. Mills this as he needs to transition to [facility] given his insurance issues. I did speak with Dr. García, patient has been approved to hold his anticoagulation until Lundy catheter removed. Continue BPH medications Avodart, Flomax as he has large prostate on ultrasound. The patient requires 24-hour sitter due to traumatic Lundy catheter removal and continues to be at high risk for a repeat catheter removal without 24-hour sitter as he remains confused and requires restraints. Hold anticoagulation as there is high risk of recurrent fall, traumatic catheter removal, recurrent hematuria until catheter removed. May transition Levaquin to amoxicillin for course of 5 days until catheter removed. Job ID: [id number] MTDD
[2018-06-11] MEDS ORDERED: Magnesium 2 GM/50 ML 2 GM in Premix Bag 1 BAG IVPB SCH (11:45)
[2018-06-11] MEDS: Atorvastatin Calcium 40 MG TAB PO SCH (17:21)
[2018-06-11] MEDS: risperiDONE 1 MG TAB PO SCH (17:33)
[2018-06-11] MEDS: Apixaban 2.5 MG TAB PO SCH (20:46)
[2018-06-11] MEDS: Montelukast Sodium 10 mg Tablet PO SCH (20:46)
--- NOTE | 2018-06-12 06:09 | PDOC.FM ---
- Subjective Subjective: Pt did well overnight. He had one episode of confusion that was corrected with redirection. No agitation overnight. Pt denies chest pain, dyspnea, or abdominal pain. Daughter reports pt is much better mentally this morning. - Objective MAR Reviewed: Yes Vital Signs & Weight: Vital Signs (12 hours) Temp Pulse Resp BP BP Pulse Ox 06/12/18 05:29 75 165/94 H 06/12/18 04:00 97.9 F 75 20 160/86 H 94 L 06/12/18 00:00 97.3 F L 67 18 146/81 H 100 06/11/18 19:39 97.0 F L 60 18 140/84 100 Weight Admit Weight 66.678 kg Weight 80.422 kg I&O: 06/10/18 06/11/18 06/12/18 06:59 06:59 06:59 Intake Total 4650 770 480 Output Total 2975 2850 1850 Balance 0215 -7956 -7749 Result Diagrams: 06/11/18 07:53 06/12/18 06:41 Phys Exam - Physical Examination Constitutional: NAD Dry mm Neck: no JVD, full ROM Respiratory: no wheezing, clear to auscultation bilateral Cardiovascular: no significant murmur, no rub regular rate, irregular rhythm Gastrointestinal: soft, no distention, positive bowel sounds Musculoskeletal: no edema, pulses present Neurological: moves all 4 limbs Psychiatric: normal affect, A&O x 3 Skin: cap refill <2 seconds Dx/Plan (1) Acute kidney injury superimposed on CKD Code(s): N17.9 - ACUTE KIDNEY FAILURE, UNSPECIFIED; N18.9 - CHRONIC KIDNEY DISEASE, UNSPECIFIED Status: Acute (2) Elevated troponin Code(s): R74.8 - ABNORMAL LEVELS OF OTHER SERUM ENZYMES Status: Acute (3) Atrial fibrillation with normal ventricular rate Code(s): I48.91 - UNSPECIFIED ATRIAL FIBRILLATION Status: Acute (4) Hyperbilirubinemia Code(s): E80.6 - OTHER DISORDERS OF BILIRUBIN METABOLISM Status: Acute (5) HTN (hypertension) Code(s): I10 - ESSENTIAL (PRIMARY) HYPERTENSION Status: Chronic Qualifiers: Hypertension type: essential hypertension Qualified Code(s): I10 - Essential (primary) hypertension - Plan Plan: This is an 87 yo male with a pmh of Atrial fibrillation, HTN, CKD Nocturnal delirium -Likely sundowning vs. lengthy hospital stay -Currently on risperidal 2mg as this seems to be working well -Geodon has not been effective Traumatic elizondo removal, s/p urology placed elizondo -Augmentin daily 2/2 risk of infection per urology -Elizondo for 1-2 weeks -f/u with [facility] UTI -Low culture count, likely 2/2 above Hyponatremia, chronic -D/C HCTZ, continue to monitor -Work up for hyponatremia HTN -Hold lisinopril due to renal function -On coreg and norvasc -PRN hydralazine and labetalol Acute gout -Continue prednisone, hold NSAIDs/ colchicine due to CAN -Consider allopurinol outpt NSTEMI Cardiology consulted -No invasive interventions -Hold ASA 2/2 bleed risk -Continue coreg CAN on CKD 3 -Improving -Likely needs outpt nephro GLF -Negative imaging for fractures Afib -Rate controlled -Holding ASA and eliquis 2/2 bleed, will restart after repeat brain CT and neurosurgery eval HLD -Continue home meds
[2018-06-12 07:22] LABS: Anion Gap 13 mmol/L (10-20); BUN (Urea Nitrogen) 33 mg/dL (8.4-25.7); Calc. Creatinine Clearance 37 mL/min (70-130); Calcium 8.8 mg/dL (7.8-10.44); Carbon Dioxide 19 mmol/L (23-31); Chloride 102 mmol/L (98-107); Estimated GFR-MDRD 43; Glucose 104 mg/dL (83-110); Potassium 4.2 mmol/L (3.5-5.1); Sodium 130 mmol/L (136-145)
[2018-06-12 09:10] LABS: #Eosinphils 0.1 thou/uL (0.0-0.7); #Lymphocytes 1.7 thou/uL (1.20-3.40); #Monocytes 1.6 thou/uL (0.11-0.59); #Neutrophils 9.9 thou/uL (1.40-6.50); %Basophils 0.1 % (0.0-1.0); %Eosinophils 0.7 % (0.0-10.0); %Lymphocytes 12.9 % (21.0-51.0); %Monocytes 11.8 % (0.0-10.0); %Neutrophils 74.5 % (42.0-75.0); Hemoglobin 15.1 g/dL (14.0-18.0); Mean Corpuscular HGB CONC 33.3 g/dL (32.0-36.0); Mean Corpuscular Hemoglobin 30.8 pg (27.0-31.0); Mean Corpuscular Volume 92.4 fL (78.0-98.0); Mean Platelet Volume 6.3 fL (7.4-10.4); Platelet Count 200 thou/uL (130-400); RBC Distribution Width 12.4 % (11.5-14.5); Red Blood Cell (RBC) Count 4.89 mill/uL (4.70-6.10); White Blood Cell (WBC) Count 13.3 thou/uL (4.8-10.8)
[2018-06-12] MEDS: Amoxicillin/Potassium Clav 500 MG TAB PO SCH ×2 (10:02→20:49)
[2018-06-12] MEDS: Fish Oil 1,000 MG CAP PO SCH (10:02)
[2018-06-12] MEDS: Dutasteride 0.5 MG CAP PO SCH (10:02)
[2018-06-12] MEDS: Nitrofurantoin Monohyd/M-Cryst 100 MG CAP PO SCH ×2 (10:02→20:49)
[2018-06-12] MEDS: predniSONE 20 MG TAB PO SCH (10:03)
[2018-06-12] MEDS: Potassium Chloride 20 MEQ TAB PO SCH ×2 (10:03→18:11)
[2018-06-12] MEDS: Tamsulosin HCl 0.4 MG CAP PO SCH (10:03)
[2018-06-12] MEDS: Atorvastatin Calcium 40 MG TAB PO SCH (10:03)
[2018-06-12] MEDS: Carvedilol 6.25 MG TAB PO SCH ×2 (10:03→18:10)
[2018-06-12] MEDS: Amlodipine 5 MG TAB PO SCH (10:04)
[2018-06-12] MEDS: Multivit, Therapeutic 1 TAB PO SCH (10:05)
--- NOTE | 2018-06-12 13:24 | PRG ---
DATE OF SERVICE: SUBJECTIVE: The patient is sleeping. Daughter at bedside. OBJECTIVE: VITAL SIGNS: Stable. He is afebrile. ABDOMEN: Soft, nontender, nondistended. Lundy catheter is secured. No blood at the meatus. Urine output clear. IMPRESSION AND PLAN: An 87-year-old male with history of dementia, recurrent fall, traumatic Lundy catheter removal last . Required cystoscopic guidance to replace the Lundy due to multiple false passages. Known to have history of benign prostatic hypertrophy, on renal bladder ultrasound. Continue Flomax and Avodart. His anticoagulation is approved to be held by Cardiology due to recent trauma and gross hematuria. On amoxicillin due to urine culture demonstrating low count Enterococcus, which he should continue until catheter removed. Await placement. I have arranged follow up with [facility] as he needs to transition to [facility] provider. Dispo pending. Continue to hold anticoagulation as there is high risk of recurrent trauma, bleed. Job ID: [id number] MTDD
--- NOTE | 2018-06-12 14:22 | PQF ---
CLINICAL DOCUMENTATION IMPROVEMENT CLARIFICATION FORM: ICD-10 Updated PLEASE DO AN ADDENDUM TO THE PROGRESS NOTE WITH ANY DOCUMENTATION UPDATES OR ADDITIONS AND CARRY THROUGH TO DC SUMMARY. THANK YOU. DATE: 06/12/18 ATTN: MALIHA SMITH Please exercise your independent, professional judgment in responding to the clarification form. Clinical indicators are provided on the bottom of this form for your review Diagnosis: "SUBDURAL HEMATOMA" [ ] TRAUMATIC SUBDURAL HEMATOMA, POA, Y [ ] TRAUMATIC SUBDURAL HEMATOMA, POA, N [ ] NON-TRAUMATIC SUBDURAL HEMATOMA, POA, Y [X] NON-TRAUMATIC SUBDURAL HEMATOMA, POA, N [ ] OTHER DIAGNOSIS [ ] UNABLE TO DETERMINE Coding guidelines require hospitals to identify whether a diagnosis was present on admission (POA) or not. To accurately assign the appropriate POA indicator, this information must be clearly documented within the medical record. CLINICAL INDICATORS - SIGNS / SYMPTOMS / LABS CONSULTATION NOTE 06/11: "STATUS POST FALL 1 WEEK AGO WITH PROBABLE NON-STEMI AND POSSIBLE CVA WITH TRACE FALCINE SUBDURAL HEMATOMA." CT BRAIN 06/10: "TINY LEFT PARAFALCINE SUBDURAL HEMATOMA" RISKS: MULTIPLE COMORBIDITIES ELIQUIS USE FALL AT HOME TREATMENT: NEUROSURGERY CONSULT CT BRAIN (This form is maintained as a part of the permanent medical record) [employer] Manager [employer] Win[employer] Viewer 2015 [employer]. All Rights Reserved [email or web address] Office: [phone] [facility]
--- NOTE | 2018-06-12 14:39 | PRG ---
DATE OF SERVICE: 06/12/2018 Mr. Costa has been seen by the Neurosurgery Department, given that he was found to have a small subdural hematoma. They recommended that we hold all blood thinners for at least two weeks and re-evaluate at that time. In the event, Mr. Costa appears to be awake and alert this morning. His blood pressure is 120/76. His room air oxygen saturation is 97%. He has had a few episodes of agitated delirium, which seemed to do well with simple redirection. He is nearing time for likely discharge. Job ID: [id number]
--- NOTE | 2018-06-12 14:41 | PQF ---
CLINICAL DOCUMENTATION IMPROVEMENT CLARIFICATION FORM: ICD-10 Updated PLEASE DO AN ADDENDUM TO THE PROGRESS NOTE WITH ANY DOCUMENTATION UPDATES OR ADDITIONS AND CARRY THROUGH TO DC SUMMARY. THANK YOU. Date: 06/12/18 ATTN: DR. BEAVERS Please exercise your independent, professional judgment in responding to the clarification form. Clinical indicators are provided on the bottom of this form for your review Please check appropriate box(s): [ ] Protein Calorie Malnutrition: [ x ] Mild [ ] Moderate [ ] Severe [ ] Other Malnutrition (please specify) __ [ ] Underweight without malnutrition [ ] Cachexia [ ] Other diagnosis [ ] Unable to determine In addition, please specify: Present on Admission (POA): [ x ] Yes [ ] No [ ] Unable to determine CLINICAL INDICATORS - SIGNS / SYMPTOMS / LABS H&P 06/03: ADDENDUM: 35 LB WEIGHT LOSS OVER LAST YEAR; PATIENT EDENTULOUS & FAMILY STATES HE EATS POORLY." CARDIOLOGY H&P 06/04: "PATIENT HAS HAD SIGNIFICANT WEIGHT LOSS" CARDIOLOGY PN 06/05: "WEIGHT LOSS" NUTRITION ASSESSMENT 06/04: SUBJECTIVE: "DAUGHTER STATES HE HAS BEEN EATING VERY LITTLE FOR LAST COUPLE MONTHS." "OBJECTIVE: MALNUTRITION EVIDENCED BY: INADEQUATE ENERGY INTAKE FOR A COUPLE OF MONTHS; DECREASED APPETITE; 16.5% WEIGHT LOSS IN 2 MONTHS BMI 24 RISKS: ADVANCED AGE LIVES ALONE WEIGHT LOSS TREATMENT: NUTRITION ASSESSMENT 06/04 CONTINUED RECOMMENDATION BY EXECUTIVE SALES MANAGER FOR NUTRITION SUPPLEMENT (06/04-PRESENT) Moderate Malnutrition (in acute illness) Energy Intake: <75% of estimated energy requirement for > 7 days [employer] Crystal Reports Winform ViewerWeight Loss: 1-2%/1 week; 5%/ 1 month; 7.5%/3 months Other: mild body fat loss; mild muscle mass loss; mild fluid accumulation; Severe Malnutrition (in acute illness) Energy Intake: < 50% of estimated energy requirement for > 5 days Weight Loss: >1-2%/1 week; >5%/1 month; >7.5%/3 months Other: moderate body fat loss; moderate muscle mass loss; moderate- severe fluid accumulation; measurably reduced heel layer strength Moderate Malnutrition (in chronic illness) Energy Intake: <75% of estimated energy requirement for >1 month Weight Loss: 5%/1 month; 7.5%/3 months; 10%/6 months; 20%/1 year Other: mild body fat loss; mild muscle mass loss; mild fluid accumulation Severe Malnutrition (in chronic illness) Energy Intake: <75% of estimated energy requirement for >1 month Weight Loss: >5%/1 month; >7.5%/3 months; >10%/6 months; >20%/1 year Other: severe body fat loss; severe muscle mass loss; severe fluid accumulation ; measurably reduced heel layer strength (This form is maintained as a part of the permanent medical record) 2014 [employer]. All Rights Reserved [email or web address] Office: [phone] [facility]ENT[facility]
[2018-06-12] MEDS: risperiDONE 1 MG TAB PO SCH (18:11)
[2018-06-12] MEDS: Montelukast Sodium 10 mg Tablet PO SCH (20:49)
[2018-06-12] MEDS: Melatonin 3 MG TAB PO PRN (20:49)
--- NOTE | 2018-06-13 06:17 | PDOC.FM ---
- Subjective Subjective: Daughter reports some agitation overnight corrected with redirection. She reports no other changes overnight. He ate some yesterday. - Objective MAR Reviewed: Yes Vital Signs & Weight: Vital Signs (12 hours) Temp Pulse Resp BP Pulse Ox 06/13/18 04:00 97.5 F L 93 20 158/87 H 95 06/13/18 00:00 20 06/12/18 20:00 97.8 F 68 20 128/77 94 L Weight Admit Weight 66.678 kg Weight 80.422 kg I&O: 06/11/18 06/12/18 06/13/18 06:59 06:59 06:59 Intake Total 770 480 Output Total 2850 1850 Balance -0 -0 Result Diagrams: 06/13/18 07:08 06/13/18 07:08 Phys Exam - Physical Examination Constitutional: NAD HEENT: moist MMs Neck: no JVD, full ROM Respiratory: no wheezing, clear to auscultation bilateral Cardiovascular: no significant murmur regular rate, irregular rhythm Gastrointestinal: soft, non-tender, no distention, positive bowel sounds Musculoskeletal: pulses present Neurological: moves all 4 limbs Psychiatric: A&O x 3 Skin: cap refill <2 seconds Dx/Plan (1) Acute kidney injury superimposed on CKD Code(s): N17.9 - ACUTE KIDNEY FAILURE, UNSPECIFIED; N18.9 - CHRONIC KIDNEY DISEASE, UNSPECIFIED Status: Acute (2) Elevated troponin Code(s): R74.8 - ABNORMAL LEVELS OF OTHER SERUM ENZYMES Status: Acute (3) Atrial fibrillation with normal ventricular rate Code(s): I48.91 - UNSPECIFIED ATRIAL FIBRILLATION Status: Acute (4) Hyperbilirubinemia Code(s): E80.6 - OTHER DISORDERS OF BILIRUBIN METABOLISM Status: Acute (5) HTN (hypertension) Code(s): I10 - ESSENTIAL (PRIMARY) HYPERTENSION Status: Chronic Qualifiers: Hypertension type: essential hypertension Qualified Code(s): I10 - Essential (primary) hypertension - Plan Plan: This is an 87 yo male with a pmh of Atrial fibrillation, HTN, CKD Nocturnal delirium -Likely sundowning vs. lengthy hospital stay -Currently on risperidal 2mg as this seems to be working well -Geodon has not been effective Traumatic elizondo removal, s/p urology placed elizondo -Augmentin daily 2/2 risk of infection per urology -Elizondo for 1-2 weeks -f/u with [facility] UTI -Low culture count, likely 2/2 above Hyponatremia, chronic -D/C HCTZ, continue to monitor -Work up for hyponatremia HTN -Hold lisinopril due to renal function -On coreg and norvasc -PRN hydralazine and labetalol Acute gout -Continue prednisone, hold NSAIDs/ colchicine due to CAN -Consider allopurinol outpt NSTEMI Cardiology consulted -No invasive interventions -Hold ASA 2/2 bleed risk -Continue coreg CAN on CKD 3 -Improving -Likely needs outpt nephro GLF -Negative imaging for fractures Afib -Rate controlled -Holding ASA and eliquis 2/2 bleed, will restart after repeat brain CT and neurosurgery eval HLD -Continue home meds Mild protein, calorie malnutrition POA -Encourage regular eating with family Addendum - Attending - Attending Attestation Date/Time: 06/13/18 1042 I personally evaluated the patient and discussed the management with Dr. Strong. I agree with the History, Examination, Assessment and Plan documented above with any addition or exceptions noted below. Patient overall stable and reports desire to go home. Awaiting insurance authorization over the last few days as he has been stable for discharge since Monday. Requires occasional re-direction but otherwise doing well and conditions stable for discharge.
[2018-06-13 07:20] LABS: #Eosinphils 0.1 thou/uL (0.0-0.7); #Lymphocytes 1.3 thou/uL (1.20-3.40); #Monocytes 1.2 thou/uL (0.11-0.59); %Basophils 0.1 % (0.0-1.0); %Eosinophils 0.7 % (0.0-10.0); %Lymphocytes 11.2 % (21.0-51.0); %Monocytes 10.4 % (0.0-10.0); %Neutrophils 77.5 % (42.0-75.0); Hemoglobin 14.6 g/dL (14.0-18.0); Mean Corpuscular HGB CONC 32.3 g/dL (32.0-36.0); Mean Corpuscular Hemoglobin 30.5 pg (27.0-31.0); Mean Corpuscular Volume 94.5 fL (78.0-98.0); Mean Platelet Volume 6.2 fL (7.4-10.4); Platelet Count 192 thou/uL (130-400); RBC Distribution Width 12.4 % (11.5-14.5); Red Blood Cell (RBC) Count 4.79 mill/uL (4.70-6.10); White Blood Cell (WBC) Count 11.7 thou/uL (4.8-10.8)
[2018-06-13 07:41] LABS: Anion Gap 12 mmol/L (10-20); BUN (Urea Nitrogen) 34 mg/dL (8.4-25.7); Calc. Creatinine Clearance 31 mL/min (70-130); Calcium 8.6 mg/dL (7.8-10.44); Carbon Dioxide 22 mmol/L (23-31); Chloride 100 mmol/L (98-107); Estimated GFR-MDRD 37; Glucose 106 mg/dL (83-110); Potassium 4.2 mmol/L (3.5-5.1); Sodium 130 mmol/L (136-145)
--- NOTE | 2018-06-13 07:56 | PRG ---
DATE OF SERVICE: 06/13/2018 SUBJECTIVE: The patient is alert, awake. Family at bedside. OBJECTIVE: VITAL SIGNS: Stable. ABDOMEN: Soft, nontender, nondistended. : Lundy catheter draining clear yellow urine. PERTINENT LABORATORY DATA: White count 11, hemoglobin 14, and platelets 192. Renal function; creatinine 1.54 and sodium 130. IMPRESSION AND PLAN: Mr. Costa is an 87-year-old male admitted, 1. Status post fall. 2. History of previous anticoagulation secondary to atrial fibrillation, held due to gross hematuria. 3. Gross hematuria due to traumatic Lundy catheter removal, required cystoscopic guidance to replace Lundy catheter last . 4. Benign prostatic hyperplasia on renal ultrasound, on Avodart and Flomax. Continue to hold Eliquis, which has been approved by Cardiology. Amoxicillin advised due to Enterococcus in urine. The patient is awaiting dispo to half-way facility. Pending discharge, he will follow up with [facility]. Job ID: [id number] MTDD
[2018-06-13 08:16] LABS: Burr Cells MODERATE= 6-15 cells (100X) (0-1/hpf); MDiff Complete? YES
[2018-06-13] MEDS: Dutasteride 0.5 MG CAP PO SCH (09:55)
[2018-06-13] MEDS: Amoxicillin/Potassium Clav 500 MG TAB PO SCH ×2 (09:55→20:31)
[2018-06-13] MEDS: Amlodipine 5 MG TAB PO SCH (09:55)
[2018-06-13] MEDS: Fish Oil 1,000 MG CAP PO SCH (09:56)
[2018-06-13] MEDS: Multivit, Therapeutic 1 TAB PO SCH (09:56)
[2018-06-13] MEDS: Carvedilol 6.25 MG TAB PO SCH ×2 (09:56→18:34)
[2018-06-13] MEDS: Potassium Chloride 20 MEQ TAB PO SCH ×2 (09:56→18:34)
[2018-06-13] MEDS: Atorvastatin Calcium 40 MG TAB PO SCH (09:56)
[2018-06-13] MEDS: Tamsulosin HCl 0.4 MG CAP PO SCH (09:56)
[2018-06-13] MEDS: risperiDONE 1 MG TAB PO SCH (18:34)
[2018-06-13] MEDS: Melatonin 3 MG TAB PO PRN (20:30)
[2018-06-13] MEDS: Montelukast Sodium 10 mg Tablet PO SCH (20:31)
--- NOTE | 2018-06-14 06:03 | PDOC.FM ---
- Subjective Subjective: Pt did well overnight. Sitter states he had some episodes of confusion controlled with redirection. - Objective MAR Reviewed: Yes Vital Signs & Weight: Vital Signs (12 hours) Temp Pulse Resp BP BP BP Pulse Ox 06/14/18 04:00 96.1 F L 58 L 20 142/76 H 06/14/18 03:25 97.5 F L 62 20 145/67 H 96 06/14/18 00:00 20 06/13/18 20:00 97.6 F 61 20 128/68 96 06/13/18 18:34 102/65 06/13/18 18:30 97.4 F L 58 L 18 102/65 Weight Admit Weight 66.678 kg Weight 74.797 kg I&O: 06/12/18 06/13/18 06/14/18 06:59 06:59 06:59 Intake Total 480 480 720 Output Total 1850 1200 1175 Balance -1370 -720 -455 Result Diagrams: 06/14/18 05:10 06/14/18 05:10 Phys Exam - Physical Examination Constitutional: NAD HEENT: moist MMs Neck: no JVD, full ROM Respiratory: no wheezing, clear to auscultation bilateral Cardiovascular: RRR, no significant murmur Gastrointestinal: soft, non-tender, no distention, positive bowel sounds Musculoskeletal: pulses present, edema present (1+pitting edema) Neurological: moves all 4 limbs Psychiatric: A&O x 3 Skin: cap refill <2 seconds Deviation from normal: swelling overleft hand from blown IV Dx/Plan (1) Acute kidney injury superimposed on CKD Code(s): N17.9 - ACUTE KIDNEY FAILURE, UNSPECIFIED; N18.9 - CHRONIC KIDNEY DISEASE, UNSPECIFIED Status: Acute (2) Elevated troponin Code(s): R74.8 - ABNORMAL LEVELS OF OTHER SERUM ENZYMES Status: Acute (3) Atrial fibrillation with normal ventricular rate Code(s): I48.91 - UNSPECIFIED ATRIAL FIBRILLATION Status: Acute (4) Hyperbilirubinemia Code(s): E80.6 - OTHER DISORDERS OF BILIRUBIN METABOLISM Status: Acute (5) HTN (hypertension) Code(s): I10 - ESSENTIAL (PRIMARY) HYPERTENSION Status: Chronic Qualifiers: Hypertension type: essential hypertension Qualified Code(s): I10 - Essential (primary) hypertension - Plan Plan: This is an 87 yo male with a pmh of Atrial fibrillation, HTN, CKD Nocturnal delirium -Likely sundowning vs. lengthy hospital stay -Currently on risperidal 2mg as this seems to be working well -Geodon has not been effective Traumatic elizondo removal, s/p urology placed elizondo -Augmentin daily 2/2 risk of infection per urology -Elizondo for 1-2 weeks -f/u with [facility] UTI -Low culture count, likely 2/2 above Hyponatremia, chronic -D/C HCTZ, continue to monitor -Work up for hyponatremia HTN -Hold lisinopril due to renal function -On coreg and norvasc -PRN hydralazine and labetalol Acute gout -Continue prednisone, hold NSAIDs/ colchicine due to CAN -Consider allopurinol outpt NSTEMI Cardiology consulted -No invasive interventions -Hold ASA 2/2 bleed risk -Continue coreg CAN on CKD 3 -Improving -Likely needs outpt nephro GLF -Negative imaging for fractures Afib -Rate controlled -Holding ASA and eliquis 2/2 bleed, will restart after repeat brain CT and neurosurgery eval HLD -Continue home meds Mild protein, calorie malnutrition POA -Encourage regular eating with family Addendum - Attending - Attending Attestation Date/Time: 06/14/18 1104 I personally evaluated the patient and discussed the management with Dr. Strong. I agree with the History, Examination, Assessment and Plan documented above with any addition or exceptions noted below. Patient doing well and stable. Awaiting results of voiding trial per Urology recs. He has been accepted for placement and is medically stable for discharge.
[2018-06-14 06:21] LABS: #Eosinphils 0.2 thou/uL (0.0-0.7); #Lymphocytes 1.6 thou/uL (1.20-3.40); #Monocytes 1.2 thou/uL (0.11-0.59); #Neutrophils 6.9 thou/uL (1.40-6.50); %Basophils 0.2 % (0.0-1.0); %Eosinophils 1.7 % (0.0-10.0); %Lymphocytes 16.2 % (21.0-51.0); Hemoglobin 13.9 g/dL (14.0-18.0); Mean Corpuscular HGB CONC 33.4 g/dL (32.0-36.0); Mean Corpuscular Volume 92.9 fL (78.0-98.0); Mean Platelet Volume 6.4 fL (7.4-10.4); Platelet Count 193 thou/uL (130-400); RBC Distribution Width 12.4 % (11.5-14.5); Red Blood Cell (RBC) Count 4.48 mill/uL (4.70-6.10); White Blood Cell (WBC) Count 9.8 thou/uL (4.8-10.8)
[2018-06-14 06:38] LABS: Anion Gap 13 mmol/L (10-20); BUN (Urea Nitrogen) 37 mg/dL (8.4-25.7); Calc. Creatinine Clearance 30 mL/min (70-130); Calcium 8.3 mg/dL (7.8-10.44); Carbon Dioxide 22 mmol/L (23-31); Chloride 99 mmol/L (98-107); Estimated GFR-MDRD 37; Glucose 92 mg/dL (83-110); Potassium 4.3 mmol/L (3.5-5.1); Sodium 130 mmol/L (136-145)
--- NOTE | 2018-06-14 07:57 | PRG ---
DATE OF SERVICE: 06/14/2018 SUBJECTIVE: The patient is sleeping, but difficult to arouse. Daughter at bedside. OBJECTIVE: VITAL SIGNS: Stable. He is afebrile. : Per my request, his Lundy catheter was removed this morning at 4:00 for a voiding trial. He has not yet voided; however, he is sleeping quite soundly. LABORATORY DATA: No new labs. IMPRESSION AND PLAN: Mr. Costa is an 87-year-old male with: 1. History of recurrent falls, previously on Eliquis and hold approved by Cardiology. 2. Traumatic Lundy catheter removal with history of BPH one week ago. This required cystoscopic guidance to replace his Lundy catheter due to multiple false passages. Continue BPH medications, amoxicillin for urine culture with enterococcus. Nursing staff to notify me regarding his postvoid residual. Await rehab placement. Due to his insurance, the patient will transition to [facility] upon discharge. As I was covering Dr. Mills last week, I made arrangements for the patient to see Dr. Mills today, however, as he still remains in-house, I will reach out to [facility] to re-schedule his followup appointment. addendum. Patient had successful voiding trial postvoid residual 33 mL. Continue his Avodart Flomax. New appointment with Dr. Mills at [facility] provided July 09 at 8:15 AM. Job ID: [id number] MTDD
[2018-06-14] MEDS: Potassium Chloride 20 MEQ TAB PO SCH (09:03)
[2018-06-14] MEDS: Tamsulosin HCl 0.4 MG CAP PO SCH (09:03)
[2018-06-14] MEDS: Carvedilol 6.25 MG TAB PO SCH (09:03)
[2018-06-14] MEDS: Amoxicillin/Potassium Clav 500 MG TAB PO SCH (09:03)
[2018-06-14] MEDS: Dutasteride 0.5 MG CAP PO SCH (09:03)
[2018-06-14] MEDS: Multivit, Therapeutic 1 TAB PO SCH (09:03)
[2018-06-14] MEDS: Atorvastatin Calcium 40 MG TAB PO SCH (09:04)
[2018-06-14] MEDS: Fish Oil 1,000 MG CAP PO SCH (09:04)
[2018-06-14] MEDS: Amlodipine 5 MG TAB PO SCH (10:07)
[2018-06-14 11:35] VITALS: BP 117/62; TEMP 96.2
[2018-06-14 14:38] VITALS: BMI 22.4
== END 2018-06-14 14:40 | DRG 280 ==
LOC: ERS 11:37 → ERHOLD 13:29 → 2NO 14:42
PROVIDERS: ADMIT Family Medicine; ATTEND Family Medicine
PROC: 0S9D30Z Drainage of Left Knee Joint with Drainage Device, Percutaneous Approach (ICD-10-PCS; principal; 2018-06-04)
PROC: 0T9B80Z Drainage of Bladder with Drainage Device, Via Natural or Artificial Opening Endoscopic (ICD-10-PCS; 2018-06-07)
DX: I21.4 Non-ST elevation (NSTEMI) myocardial infarction (principal); I62.00 Nontraumatic subdural hemorrhage, unspecified; N17.9 Acute kidney failure, unspecified; E87.1 Hypo-osmolality and hyponatremia; E44.1 Mild protein-calorie malnutrition; N39.0 Urinary tract infection, site not specified; I48.91 Unspecified atrial fibrillation; E78.5 Hyperlipidemia, unspecified; E80.6 Other disorders of bilirubin metabolism; E86.0 Dehydration; N18.3 Chronic kidney disease, stage 3 (moderate); R41.0 Disorientation, unspecified; I12.9 Hypertensive chronic kidney disease with stage 1 through stage 4 chronic kidney disease, or unspecified chronic kidney disease; S80.02XA Contusion of left knee, initial encounter; N40.1 Benign prostatic hyperplasia with lower urinary tract symptoms; R33.9 Retention of urine, unspecified; S50.01XA Contusion of right elbow, initial encounter; M10.9 Gout, unspecified; T83.028A Displacement of other urinary catheter, initial encounter; M19.91 Primary osteoarthritis, unspecified site; R31.9 Hematuria, unspecified; B95.2 Enterococcus as the cause of diseases classified elsewhere; N40.0 Benign prostatic hyperplasia without lower urinary tract symptoms; Z86.73 Personal history of transient ischemic attack (TIA), and cerebral infarction without residual deficits; Z90.49 Acquired absence of other specified parts of digestive tract; Z79.82 Long term (current) use of aspirin; Z68.22 Body mass index [BMI] 22.0-22.9, adult; W18.30XA Fall on same level, unspecified, initial encounter; Y83.8 Other surgical procedures as the cause of abnormal reaction of the patient, or of later complication, without mention of misadventure at the time of the procedure
CPT/HCPCS: 36415; 70450; 71045; 76770; 80048; 80053; 80061; 81001; 81003; 81015; 82550; 82553; 82570; 82607; 82746; 82945; 83735; 83880; 83930; 83935; 84145; 84157; 84300; 84443; 84484; 84560; 85014; 85018; 85025; 85060; 85652; 86140; 86780; 87070; 87086; 87205; 87899; 89051; 89060; 93005; 93010; 93306; 94760; 96360; J0360; J1200; J1650; J1956; J2001; J2060; J3475; J7512